=== PATIENT | female | born 1965 | race Caucasian/White ===

== ENCOUNTER 2016-06-05 17:09 | Emergency (ER) | payer SELFPAY ==
[~2016-06-05 17:09] MED LIST: BELSOMRA20 MG PO; LAMICTAL200 MG PO; MIRTAZAPINE15 MG PO; NEURONTIN300 MG PO; SULFAMETHOXAZOL; VALERIAN ROOT PO; VISTARIL25 MG PO
--- NOTE | 2016-06-05 17:12 | NUR ---
CALLED PT FOR TRIAGE ASSESSMENT, NO ANSWER.
--- NOTE | 2016-06-05 17:30 | NUR ---
CALLED PT FOR TRIAGE ASSESSMENT, NO ANSWER.
--- NOTE | 2016-06-05 17:45 | NUR ---
PATIENT LEFT WITHOUT BEING SEEN BY DR. LOPEZ. NO FURTHER CARE PROVIDED FOR PATIENT.
[2016-06-06] MEDS ORDERED: NEURONTIN400 MG PO (09:25)
[2016-06-14] MEDS ORDERED: NEURONTIN300 MG PO (14:27)
[2016-06-14] MEDS ORDERED: CATAPRES0.1 MG PO (14:27)
== END 2016-06-05 17:45 | disposition left against medical advice (07) ==
LOC: MED 17:09
DX: H92.09 Otalgia, unspecified ear (principal); Z53.21 Procedure and treatment not carried out due to patient leaving prior to being seen by health care provider

== ENCOUNTER 2016-06-06 09:13 | Emergency (ER) | payer MEDICAID, OTHER ==
[~2016-06-06] VITALS: Ht 165.1 cm; Wt 72.6 kg
--- NOTE | 2016-06-06 09:20 | NUR ---
Patient ambulated to bed 03.
[2016-06-06 09:21] VITALS: BP 141/93
--- NOTE | 2016-06-06 09:22 | NUR ---
Dr. Lagunas evaluating patient at bedside.
[2016-06-06] MEDS ORDERED: NEURONTIN400 MG PO (09:25)
--- NOTE | 2016-06-06 09:25 | NUR ---
PATIENT PRESENTS TO ED WITH LOW BACK PAIN X 1 MONTH; DENIES N/V/D; SKIN IS PINK/WARM/DRY; AAOX4 WITH EVEN AND STEADY GAIT; LUNGS CLEAR BL; HR EVEN AND REGULAR; PT DENIES ANY FEVER, CP, SOB, OR COUGH AT THIS TIME; PATIENT STATES PAIN OF 9/10 AT THIS TIME; VSS; PATIENT POSITIONED FOR COMFORT; HOB ELEVATED; BEDRAILS UP X2; BED DOWN. ER MD MADE AWARE OF PT STATUS.
[2016-06-06] MEDS ORDERED: KETOROLAC 30 MG/ML VIAL IM ONE (09:30)
[2016-06-06] MEDS ORDERED: METHOCARBAMOL 500 MG TAB PO SCH (09:30)
[2016-06-06] MEDS ORDERED: HYDROcodone/APAP 5/325 MG 1 TAB TAB PO ONE (09:30)
--- NOTE | 2016-06-06 09:45 | NUR ---
Patient ambulated to the bathroom.
[2016-06-06 10:05] VITALS: BP 130/75
--- NOTE | 2016-06-06 10:05 | NUR ---
Patient discharged with v/s stable. Written and verbal after care instructions given and explained. Patient alert, oriented and verbalized understanding of instructions. Ambulatory with steady gait. All questions addressed prior to discharge. ID band removed. Patient advised to follow up with PMD. Rx of NORCO, ROBAXIN, MOTRIN given. Patient educated on indication of medication including possible reaction and side effects. Opportunity to ask questions provided and answered.
[2016-06-14] MEDS ORDERED: NEURONTIN300 MG PO (14:27)
[2016-06-14] MEDS ORDERED: CATAPRES0.1 MG PO (14:27)
== END 2016-06-06 10:05 | disposition home or self-care (01) ==
LOC: MED 09:17
DX: M54.16 Radiculopathy, lumbar region (principal); G89.29 Other chronic pain; F17.200 Nicotine dependence, unspecified, uncomplicated
CPT/HCPCS: 96372; 99283; J1885

== ENCOUNTER 2016-08-08 12:36 | Emergency (ER) | payer OTHER ==
[~2016-08-08] VITALS: Ht 165.1 cm; Wt 65.8 kg
[~2016-08-08 12:36] MED LIST changes: -BELSOMRA20 MG PO; +CLON0.1T42 PO; +GABA300C PO; +HYDR25CA1 PO; -LAMICTAL200 MG PO; +MIRT15TA4 PO; -MIRTAZAPINE15 MG PO; -NEURONTIN300 MG PO; -SULFAMETHOXAZOL; +VALE450C PO; -VALERIAN ROOT PO; -VISTARIL25 MG PO
--- NOTE | 2016-08-08 12:40 | NUR ---
PT BIBA TO BED 3.
[2016-08-08 12:48] VITALS: BP 157/101
--- NOTE | 2016-08-08 12:50 | NUR ---
PT O2 SAT 98% ON ROOM AIR; STATES BREATHING FINE; RR EVEN/UNLABORED, REFUSES SUPPLEMENTARY O2; WILL CONTINUE TO MONITOR.
--- NOTE | 2016-08-08 12:50 | NUR ---
50F BIBA FROM HOME C/O NAUSEA/VOMITING/DIARRHEA W/ ABDOMINAL PAIN X TODAY; PT STATES HAD 10-15 EPISODES OF VOMITING, AND 3 EPISODES OF DIARRHEA TODAY; PT C/O SHARP EPIGASTRIC PAIN, RADIATES TO BL UPPER ABDOMINAL SIDES, 10/10 X TODAY; ABDOMEN SOFT, NON-TENDER, ACTIVE BOWEL SOUNDS X 4 QUADRANTS; PT A&OX4, PERRL, BL LUNG SOUNDS CLEAR, RR EVEN/UNLABORED, SKIN IS WARM/DRY/INTACT AT THIS TIME; STEADY GAIT; PT RESTING IN BED W/ HOB ELEVATED AND IN LOWEST POSITION; POSITIONED FOR COMFORT; HX: HTN/PANCREATITIS. ER MD MADE AWARE OF STATUS. WILL CONTINUE TO MONITOR.
--- NOTE | 2016-08-08 12:56 | NUR ---
ER MD DR. ZENDEJAS EVALUATING PT AT BEDSIDE.
[2016-08-08] MEDS ORDERED: NACL 0.9% 1,000 ML IV ONE (13:00)
[2016-08-08] MEDS ORDERED: PROMETHAZINE 25 MG/ML VIAL IVP ONE (13:00)
[2016-08-08] MEDS ORDERED: KETOROLAC 30 MG/ML VIAL IVP ONE (13:00)
--- NOTE | 2016-08-08 13:12 | NUR ---
XRAY AT BEDSIDE.
[2016-08-08 13:27] LABS: BASOPHILS # (AUTO) 0.2 K/uL (0.00-0.22); BASOPHILS % (AUTO) 1.2 % (0.0-2.0); EOSINOPHILS # (AUTO) 0.2 K/uL (0-0.4); EOSINOPHILS % (AUTO) 1.3 % (0.0-4.0); HEMATOCRIT 48.6 % (36-48); HEMOGLOBIN 15.4 g/dL (12.0-16.0); LYMPHOCYTES # (AUTO) 1.9 K/uL (2.5-16.5); LYMPHOCYTES % (AUTO) 15.2 % (20.5-51.1); MEAN CORPUSCULAR HEMOGLOBIN 26 pg (27-31); MEAN CORPUSCULAR HGB CONC 32 g/dL (33-37); MEAN CORPUSCULAR VOLUME 83 fL (80-94); MONOCYTES # (AUTO) 0.3 K/uL (0.8-1.0); MONOCYTES % (AUTO) 2.1 % (1.7-9.3); NEUTROPHILS # (AUTO) 10.1 K/uL (1.8-7.7); NEUTROPHILS % (AUTO) 80.2 % (42.2-75.2); PLATELET COUNT (AUTO) 313 K/uL (140-450); RED BLOOD CELL COUNT(AUTO) 5.85 MIL/uL (4.20-5.40); RED CELL DISTRIBUTION WIDTH 12.9 % (11.6-13.7); WHITE BLOOD COUNT (AUTO) 12.7 K/uL (4.8-10.8)
[2016-08-08 13:39] LABS: ALBUMIN 3.7 g/dL (3.4-5.0); ANION GAP 16.4 (8-16); CALCIUM 9.8 mg/dL (8.5-10.1); CARBON DIOXIDE 23.5 mmol/L (21-32); CREATININE 0.8 mg/dL (0.6-1.3); POTASSIUM 3.9 mmol/L (3.5-5.1); TOTAL BILIRUBIN 0.5 mg/dL (0.0-1.0); TOTAL PROTEIN, SERUM 8.2 g/dL (6.4-8.2)
--- NOTE | 2016-08-08 13:49 | NUR ---
US AT BEDSIDE.
[2016-08-08] MEDS ORDERED: fentaNYL 0.05 MG/ML VIAL IVP ONE (13:55)
[2016-08-08] MEDS ORDERED: DICYCLOMINE HCL LIQUID 10 MG/5 ML UDC PO ONE (14:35)
--- NOTE | 2016-08-08 15:30 | NUR ---
IV removed, catheter intact and site benign. Applied folded 4x4 gauze and tape to stop bleeding. PT TOLERATED PROCEDURE WELL.
[2016-08-08 15:32] VITALS: BP 144/77
--- NOTE | 2016-08-08 15:32 | NUR ---
Patient discharged with v/s stable. Written and verbal after care instructions given and explained. Patient alert, oriented and verbalized understanding of instructions. Wheel Chair Assisted with to car. All questions addressed prior to discharge. ID band removed. Patient advised to follow up with PMD. Rx of BENTYL 20MG TAB & PROTONIX 40MG & ZOFRAN ODT 4MG given. Patient educated on indication of medication including possible reaction and side effects. Opportunity to ask questions provided and answered.
== END 2016-08-08 15:32 | disposition home or self-care (01) ==
LOC: MED 12:36
DX: E86.0 Dehydration (principal); K29.70 Gastritis, unspecified, without bleeding; I10 Essential (primary) hypertension; M54.30 Sciatica, unspecified side
CPT/HCPCS: 36415; 71010; 76705; 80053; 81025; 83690; 84484; 85025; 93005; 96361; 96374; 96375; 99285; J1885; J2550; J3010; J7030; Q0092; 81002

== ENCOUNTER 2017-01-08 13:50 | Emergency (ER) | payer OTHER ==
[~2017-01-08] VITALS: Ht 165.1 cm; Wt 77.1 kg
[2017-01-08 13:59] VITALS: BP 121/75
--- NOTE | 2017-01-08 15:59 | NUR ---
PATIENT CALLED FROM LOBBY AT THIS TIME PATIENT IS LWBS.
== END 2017-01-08 15:59 | disposition left against medical advice (07) ==
LOC: MED 13:50
DX: M79.1 Myalgia (principal); Z53.21 Procedure and treatment not carried out due to patient leaving prior to being seen by health care provider

== ENCOUNTER 2017-01-10 10:48 | Emergency (ER) | payer OTHER ==
[~2017-01-10] VITALS: Ht 165.1 cm; Wt 81.0 kg
[2017-01-10 10:54] VITALS: BP 95/65
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
[2017-01-10] MEDS ORDERED: MORPHINE SULFATE 4 MG/ML SYR IM ONE (11:45)
--- NOTE | 2017-01-10 11:52 | NUR ---
PT TAKEN OFF THE UNIT VIA WHEEL CHAIR FOR XRAY
--- NOTE | 2017-01-10 12:07 | NUR ---
[facility] PT TAKEN OFF THE UNIT VIA WHEEL CHAIR FOR XRAY OF THE NECK BY ENTERPRISE RESOURCE ANALYST
[2017-01-10 13:17] VITALS: BP 101/68
--- NOTE | 2017-01-10 13:17 | NUR ---
Patient discharged with v/s stable. Written and verbal after care instructions given and explained. Patient alert, oriented and verbalized understanding of instructions. Ambulatory with steady gait. All questions addressed prior to discharge. ID band removed. Patient advised to follow up with PMD. Rx of BACTRIM, KEFLEX given. Patient educated on indication of medication including possible reaction and side effects. Opportunity to ask questions provided and answered.
== END 2017-01-10 13:17 | disposition home or self-care (01) ==
LOC: MED 10:48
DX: M54.5 Low back pain (principal); M54.2 Cervicalgia; L03.211 Cellulitis of face; I10 Essential (primary) hypertension; E11.9 Type 2 diabetes mellitus without complications; V89.2XXA Person injured in unspecified motor-vehicle accident, traffic, initial encounter; Y93.89 Activity, other specified; Y92.89 Other specified places as the place of occurrence of the external cause; Y99.8 Other external cause status
CPT/HCPCS: 72040; 72100; 81002; 81025; 96372; 99284; J2270

== ENCOUNTER 2017-03-14 11:52 | Inpatient (IN) | payer OTHER ==
[~2017-03-14] VITALS: Ht 162.6 cm; Wt 77.1 kg
--- NOTE | 2017-03-14 11:55 | NUR ---
Pt placed in bed 3 by EMS.
[2017-03-14 11:58] VITALS: BP 154/98
--- NOTE | 2017-03-14 12:08 | NUR ---
51/F biba from home for evaluation of abdominal pain since this am accompanied by N/V/D for the past 3 days. Hx pancreatitis, depression. Pt describes pain as epigastris, LUQ, non radiating, severe, constant, 10/10. Pt has had no vomiting while in ED. Pt received Zofran 8mg IVP prior to arrival. Abd soft, tender with palpation, active bowel sounds x4 quadrants. AOX4. Pt in a gown, placed on pulse oximetry and blood pressure monitoring. VSS at this time.
--- NOTE | 2017-03-14 12:10 | NUR ---
Patient being evaluated by Dr. Biswas at bedside.
[2017-03-14] MEDS ORDERED: NACL 0.9% 1,000 ML IV ONE ×2 (12:16→14:15)
[2017-03-14] MEDS ORDERED: ONDANSETRON 4 MG/2 ML VIAL IVP ONE ×2 (12:20→12:35)
[2017-03-14] MEDS ORDERED: MORPHINE SULFATE 4 MG/ML SYR IVP ONE (12:20)
--- NOTE | 2017-03-14 12:25 | NUR ---
Lab at bedside for blood draw.
[2017-03-14 12:30] LABS: BASOPHILS # (AUTO) 0.4 K/uL (0.00-0.22); BASOPHILS % (AUTO) 3.2 % (0.0-2.0); EOSINOPHILS # (AUTO) 0.2 K/uL (0-0.4); EOSINOPHILS % (AUTO) 1.3 % (0.0-4.0); HEMATOCRIT 48.1 % (36-48); HEMOGLOBIN 15.5 g/dL (12.0-16.0); LYMPHOCYTES # (AUTO) 1.1 K/uL (2.5-16.5); LYMPHOCYTES % (AUTO) 8.7 % (20.5-51.1); MEAN CORPUSCULAR HEMOGLOBIN 28 pg (27-31); MEAN CORPUSCULAR HGB CONC 32 g/dL (33-37); MEAN CORPUSCULAR VOLUME 86 fL (80-94); MONOCYTES % (AUTO) 0.1 % (1.7-9.3); NEUTROPHILS # (AUTO) 11.3 K/uL (1.8-7.7); NEUTROPHILS % (AUTO) 86.7 % (42.2-75.2); PLATELET COUNT (AUTO) 347 K/uL (140-450); RED BLOOD CELL COUNT(AUTO) 5.62 MIL/uL (4.20-5.40); RED CELL DISTRIBUTION WIDTH 13.2 % (11.6-13.7)
[2017-03-14] MEDS ORDERED: HYDROmorphone 1 MG/ML AMP IVP ONE ×2 (12:35→14:15)
[2017-03-14] MEDS ORDERED: HYDROmorphone PFS 2 MG/ML SYR ONE ×2 (12:47→14:41)
[2017-03-14 12:57] LABS: ALBUMIN 3.8 g/dL (3.4-5.0); ANION GAP 12.1 (8-16); CARBON DIOXIDE 26.5 mmol/L (21-32); CREATININE 0.8 mg/dL (0.6-1.3); POTASSIUM 3.6 mmol/L (3.5-5.1); TOTAL BILIRUBIN 0.4 mg/dL (0.0-1.0)
--- NOTE | 2017-03-14 13:01 | NUR ---
Pt to be taken to CT via gurney.
--- NOTE | 2017-03-14 13:15 | NUR ---
Patient back from CT via gurney.
[2017-03-14] MEDS ORDERED: METOCLOPRAMIDE 10 MG/2 ML INJ VIAL IVP ONE (14:15)
[2017-03-14] MEDS ORDERED: diphenhydrAMINE 50 MG/ML VIAL IVP ONE (14:15)
[2017-03-14] MEDS: NACL 0.9% 1,000 ML IV SCH ×2 (14:18→21:04)
[2017-03-14] MEDS ORDERED: HYDROcodone/APAP 7.5/325 MG 1 TAB PO PRN (14:20)
[2017-03-14] MEDS ORDERED: ACETAMINOPHEN 325 MG TAB PO PRN (14:20)
--- NOTE | 2017-03-14 14:27 | NUR ---
US AT BEDSIDE.ENEMA WILL BE GIVEN AFTER US;
--- NOTE | 2017-03-14 14:35 | NUR ---
X-Ray at bedside.
[2017-03-14] MEDS ORDERED: TAMSULOSIN 0.4 MG CAP PO SCH (14:50)
[2017-03-14 15:06] LABS: PROTHROMBIN TIME 11.1 secs (10.8-13.4)
--- NOTE | 2017-03-14 15:30 | NUR ---
PATIENT WAS TRANSFERRED FROM ER BY TERRI. REPORT WAS GIVEN AT BEDSIDE. PATIENT RESPIRATION EVEN, UNLABOR. VS WAS TAKEN. MRSA WAS SWABBED. ASSESSMENT WAS DONE AT BEDSIDE. LUNGS SOUND CLEAR THROUGHOUT, CARDIAC WITH S1,S2 PRESENT. PATIENT AWAKE, ALERT, ORIENTED X 4. BOWEL SOUND ACTIVE 4 QUADRANTS. COMPLAINED OF NAUSEA, AND PAIN ON ABDOMEN THAT RADIATE TO THE BACK. WILL MEDICATE PER ORDER. IV 20G ON LEFT AC, PATENT AND INTACT. CALL LIGHT WITHIN REACH. WILL CONTINUE TO MONITOR
[2017-03-14 15:43] LABS: CHOL/HDL RATIO 8.5 (1-4.5); FREE T4 (FREE THYROXINE) 0.9 ng/dL (0.76-1.46); MAGNESIUM 1.8 mg/dL (1.8-2.4); PHOSPHORUS 2.3 mg/dL (2.5-4.9); THYROID STIMULATING HORMONE 0.21 uIU/mL (0.34-3.74)
[2017-03-14] MEDS: HYDROcodone/APAP 7.5/325 MG 1 TAB PO PRN (16:00)
--- NOTE | 2017-03-14 16:00 | NUR ---
NEW IV WAS PLACED ON RIGHT HAND, 22G INFUSING NS @ 150ML/HR. OLD IV CAME OFF PER PATIENT, CATHETER TIP INTACT. PATIENT TOLERATED OK. CALL LIGHT WITHIN REACH. WILL CONTINUE TO MONITOR
[2017-03-14] MEDS ORDERED: LIOT5TAB PO (16:10)
[2017-03-14] MEDS ORDERED: ALPR1TAB17 PO (16:10)
[2017-03-14] MEDS ORDERED: DESV50TE PO (16:10)
[2017-03-14] MEDS: ONDANSETRON 4 MG/2 ML VIAL IVP PRN (16:14)
[2017-03-14] MEDS ORDERED: VITD1000 PO (16:15)
[2017-03-14] MEDS ORDERED: SODIUM PHOS / POTASSIUM PHOS 1 PKT PDR PO SCH (16:30)
[2017-03-14 16:42] VITALS: BP 130/73
[2017-03-14] MEDS: GABAPENTIN 300 MG CAP PO SCH ×2 (17:31→21:04)
[2017-03-14] MEDS: cloNIDine 0.1 MG TAB PO SCH (17:32)
[2017-03-14] MEDS: hydrOXYzine PAMOATE 25 MG CAP PO SCH (17:32)
--- NOTE | 2017-03-14 18:00 | NUR ---
PATIENT AWAKE, ALERT. RESPIRATION IS EVEN. COMPLAINED OF PAIN 7/10 ON ABDOMEN THAT RADIATES TO THE LOWER BACK. WILL MEDICATE PER ORDER. CALL LIGHT WITHIN REACH. WILL CONTINUE TO MONITOR
[2017-03-14] MEDS: ALPRAZolam 0.5 MG TAB PO PRN (18:13)
[2017-03-14] MEDS: KETOROLAC 15 MG/ML VIAL IVP PRN (18:13)
[2017-03-14 18:28] LABS: APPEARANCE,URINE CLEAR (CLEAR); BILIRUBIN,URINE NEGATIVE (NEGATIVE); BLOOD, URINE 1+ (NEGATIVE); COLOR,URINE YELLOW (YELLOW); LEUKOCYTE ESTERASE ,URINE NEGATIVE (NEGATIVE); NITRITE, URINE NEGATIVE (NEGATIVE); UGLUCOSE NEGATIVE (NEGATIVE)
[2017-03-14 18:35] LABS: BARBITURATE, URINE NEG. ng/ml (NEG <=200); BENZODIAZEPINE, URINE POS. ng/mL (NEG <=200); CANNABINOID, URINE NEG. ng/mL (NEG <=50); COCAINE, URINE NEG. ng/mL (NEG <=300); OPIATE, URINE POS. ng/mL (NEG <=2000); PHENCYCLIDINE SCREEN,URINE NEG. ng/mL (NEG <=25)
[2017-03-14 18:52] LABS: RBC,URINE 20-50 /HPF (0-5); WBC,URINE NONE SEEN /HPF (0-5)
--- NOTE | 2017-03-14 19:26 | NUR ---
ENDORSEMENT GIVEN TO THE REHAB CARE ASSISTANT NURSE. PATIENT IS STABLE AT THIS TIME.
--- NOTE | 2017-03-14 19:35 | NUR ---
RECEIVED REPORT FROM DAY RN TONY. PATIENT WAS SLEEPING IN THE BED, BUT EASY TO AROUSE. NO S/S OF DISTRESS NOTED, RESPIRATION EVEN AND UNLABORED, IV PATENT AND INTACT, INFUSING NS AT 150ML/HR, CALL LIGHT WITHIN REACH, SAFETY MEASURE ENSURED, WILL CONTINUE TO MONITOR.
[2017-03-14 20:00] VITALS: BP 123/73
[2017-03-14] MEDS: DOCUSATE SODIUM 100 MG GELCAP PO SCH (21:04)
--- NOTE | 2017-03-14 21:07 | NUR ---
DUE MEDICATION GIVEN, PATIENT TOLERATED WELL. NO S/S OF DISTRESS NOTED, RESPIRATION EVEN AND UNLABORED, CALL LIGHT WITHIN REACH, SAFETY MEASURE ENSURED, WILL CONTINUE TO MONITOR.
[2017-03-15] VITALS: BP 136/77
--- NOTE | 2017-03-15 00:53 | NUR ---
PATIENT WAS SLEEPING, EASY TO AROUSE, VITAL SIGNS TAKEN, STABLE. PATIENT HAS NOT VOIDED YET, INSTRUCTED PATIENT TO CALL NURSE WHEN SHE NEEDS TO VOID BECAUSE URINE NEED TO BE STRAINED FOR URETEROLITHIASIS. PATIENT VERBALIZED UNDERSTANDING. CALL LIGHT WITHIN REACH, SAFETY MEASURE ENSURED, WILL CONTINUE TO MONITOR.
--- NOTE | 2017-03-15 01:10 | NUR ---
VOIDED X1, STRAINED 400ML URINE, NO STONE FOUND. PATIENT IS RESTING IN BED, NO S/S OF DISTRESS NOTED, WILL CONTINUE TO MONITOR.
[2017-03-15] MEDS: HYDROcodone/APAP 7.5/325 MG 1 TAB PO PRN (03:01)
[2017-03-15] MEDS: ONDANSETRON 4 MG/2 ML VIAL IVP PRN ×2 (03:43→09:08)
[2017-03-15] MEDS: NACL 0.9% 1,000 ML IV SCH ×4 (03:43→23:38)
--- NOTE | 2017-03-15 03:48 | NUR ---
PATIENT STATED," I FEEL NAUSEOUS." ZOFRAN GIVEN ORDERED. VOIDEDX1, STRAINED 200ML, NO STONE WAS FOUND. PATIENT IS RESTING IN BED, NO S/S OF DISTRESS NOTED, CALL LIGHT WITHIN REACH, SAFETY MEASURE ENSURED, WILL CONTINUE TO MONITOR.
[2017-03-15 04:00] VITALS: BP 152/73
[2017-03-15] MEDS: KETOROLAC 15 MG/ML VIAL IVP PRN (05:14)
--- NOTE | 2017-03-15 05:21 | NUR ---
PATIENT WAS SLEEPING, EASY TO AROUSE, STATED, " I HAVE BACK PAIN, CAN I HAVE TORADOL." TORADOL ADMINISTERED ORDERED FOR BREAKTHROUGH PAIN. CALL LIGHT WITHIN REACH, SAFETY MEASURE ENSURED ,WILL CONTINUE TO MONITOR.
[2017-03-15] MEDS ORDERED: MORPHINE SULFATE 2 MG/ML SYR IVP PRN (07:05)
[2017-03-15 07:10] LABS: BASOPHILS # (AUTO) 0.5 K/uL (0.00-0.22); BASOPHILS % (AUTO) 4.3 % (0.0-2.0); EOSINOPHILS % (AUTO) 0.3 % (0.0-4.0); HEMOGLOBIN 13.5 g/dL (12.0-16.0); LYMPHOCYTES # (AUTO) 1.9 K/uL (2.5-16.5); LYMPHOCYTES % (AUTO) 15.8 % (20.5-51.1); MEAN CORPUSCULAR HEMOGLOBIN 28 pg (27-31); MEAN CORPUSCULAR HGB CONC 33 g/dL (33-37); MEAN CORPUSCULAR VOLUME 85 fL (80-94); MONOCYTES # (AUTO) 0.8 K/uL (0.8-1.0); MONOCYTES % (AUTO) 6.4 % (1.7-9.3); NEUTROPHILS # (AUTO) 8.7 K/uL (1.8-7.7); NEUTROPHILS % (AUTO) 73.2 % (42.2-75.2); PLATELET COUNT (AUTO) 283 K/uL (140-450); RED BLOOD CELL COUNT(AUTO) 4.82 MIL/uL (4.20-5.40); RED CELL DISTRIBUTION WIDTH 13.4 % (11.6-13.7); WHITE BLOOD COUNT (AUTO) 11.9 K/uL (4.8-10.8)
[2017-03-15 07:17] LABS: ANION GAP 11.5 (8-16); CARBON DIOXIDE 24.7 mmol/L (21-32); CREATININE 0.7 mg/dL (0.6-1.3); POTASSIUM 3.2 mmol/L (3.5-5.1)
--- NOTE | 2017-03-15 07:21 | NUR ---
ENDORSED PLAN OF CARE TO DAY RN, PATIENT IS IN STABLE CONDITION.
--- NOTE | 2017-03-15 07:23 | NUR ---
RECEIVED REPORT FROM STRUCTURAL STEEL TRADES WORKER RN. PATIENT IS AAOX4, NO SIGNS AND SYMPTOMS OF ACUTE DISTRESS NOTED AT THIS TIME. PATIENT HAS NS INFUSING AT 150ML/HR TO RIGHT HAND 22G. SITE IS CLEAN, DRY, PATENT AND INTACT. DISCUSSED PLAN OF CARE WITH PATIENT SHE VERBALIZED UNDERSTANDING. BED IN LOWEST POSITION, SIDERAILS UP X2, CALL LIGHT PLACED WITHIN REACH. WILL CONTINUE TO MONITOR.
[2017-03-15 07:24] LABS: MAGNESIUM 1.8 mg/dL (1.8-2.4); PHOSPHORUS 2.3 mg/dL (2.5-4.9)
[2017-03-15 08:00] VITALS: BP 122/85
[2017-03-15 08:04] LABS: AMYLASE 30 U/L (25-115); LIPASE 155 U/L (73-393)
[2017-03-15] MEDS ORDERED: POTASSIUM CHLORIDE 40 MEQ, LIDOCAINE 1% 25 MG in NACL 0.9% 250 ML IV SCH (09:00)
[2017-03-15] MEDS ORDERED: DESVENLAFAXINE SUCCINATE PO SCH (09:00)
[2017-03-15] MEDS: DOCUSATE SODIUM 100 MG GELCAP PO SCH ×2 (09:00→21:02)
[2017-03-15] MEDS ORDERED: LIOTHYRONINE SODIUM 5 MCG PO SCH (09:00)
[2017-03-15] MEDS: hydrOXYzine PAMOATE 25 MG CAP PO SCH ×3 (09:04→17:00)
[2017-03-15] MEDS: TAMSULOSIN 0.4 MG CAP PO SCH (09:05)
[2017-03-15] MEDS: LACTOBACILLUS RHAMNOSUS GG 1 EACH CAP PO SCH (09:07)
--- NOTE | 2017-03-15 09:07 | NUR ---
PATIENTS MOTHER IS BY THE BEDSIDE
[2017-03-15] MEDS: VITAMIN D 400 IU TAB PO SCH (09:09)
[2017-03-15] MEDS: PANTOPRAZOLE 40 MG TABEC PO SCH (09:09)
[2017-03-15] MEDS: cloNIDine 0.1 MG TAB PO SCH ×4 (09:12→21:07)
[2017-03-15] MEDS: GABAPENTIN 300 MG CAP PO SCH ×4 (09:12→21:00)
--- NOTE | 2017-03-15 09:30 | NUR ---
PATIENT COMPLAINING THAT HER IV SITE IS HURTING. K RIDER WITH LIDOCAINE IS CURRENTLY INFUSING. WILL LET DR YANCEY KNOW.
--- NOTE | 2017-03-15 09:40 | NUR ---
PATIENT STATED THAT HER MOTHER HAD BROUGHT A BAG WITH HER MEDICATIONS. WILL TAKE THEM TO THE PHARMACY.
[2017-03-15] MEDS ORDERED: traMADol 50 MG TAB PO PRN (09:45)
[2017-03-15] MEDS ORDERED: POTASSIUM CHLORIDE 10 MEQ TABER PO SCH (10:30)
[2017-03-15] MEDS: LIOTHYRONINE 5 MCG PO SCH (11:30)
[2017-03-15] MEDS: DESVENLAFAXINE 50 MG PO SCH (11:30)
--- NOTE | 2017-03-15 11:30 | NUR ---
GAVE PATIENT K-DUR. WENT TO ADMINISTER THE DESVENLAFAXINE, AND LIOTHYRONINE THAT WERE BROUGHT FROM HOME BUT PATIENT STATED THAT SHE TOOK THEM ALREADY THIS MORNING BEFORE I COLLECTED HER HOME MEDICATIONS FROM THE BEDSIDE.
[2017-03-15 12:00] VITALS: BP 156/83
[2017-03-15] MEDS: ALPRAZolam 0.5 MG TAB PO PRN ×2 (12:01→21:01)
[2017-03-15] MEDS: KETOROLAC 30 MG/ML VIAL IVP PRN (12:02)
[2017-03-15] MEDS ORDERED: SODIUM PHOS / POTASSIUM PHOS 1 PKT PDR PO SCH (14:30)
[2017-03-15 16:00] VITALS: BP 127/69
[2017-03-15] MEDS ORDERED: LOPERAMIDE 2 MG CAP PO SCH (18:10)
[2017-03-15] MEDS: HYDROcodone/APAP 10/325 MG 1 TAB TAB PO PRN (18:53)
--- NOTE | 2017-03-15 19:30 | NUR ---
ENDORSED PATIENT TO HOT DIP PLATING SUPERVISOR RN FOR CONTINUITY OF CARE. PATIENT IN STABLE CONDITION.
--- NOTE | 2017-03-15 19:35 | NUR ---
ON BED ALERT AND ORIENTED BREATHING EVEN AND UNLABORED ON ROOM AIR . WITH TOLERABLE LOWER BACK PAIN JUST HAD NORCO AT 1850 HRS WILL CONTINUE MONITOR PATIENT.
[2017-03-16] VITALS: BP 100/62
--- NOTE | 2017-03-16 00:30 | NUR ---
pATIENT WENT TO BATHROOM TO URINATE SHE STRAINED HER URINE AND CALLED ME I SAW A TINY BLACK ? STONE I TOUCH IT AND IT DESOLVED. PATIENT SAID SHE IS FINE . I ADVISED HER STRAIN HER URINE AGAIN NEXT TIME TO WE CAN MONITOR.
[2017-03-16] MEDS: HYDROcodone/APAP 10/325 MG 1 TAB TAB PO PRN ×2 (00:43→09:17)
[2017-03-16 04:00] VITALS: BP 109/70
[2017-03-16] MEDS: KETOROLAC 30 MG/ML VIAL IVP PRN (04:35)
[2017-03-16] MEDS: NACL 0.9% 1,000 ML IV SCH (06:18)
--- NOTE | 2017-03-16 07:10 | NUR ---
RECEIVED REPORT FROM DRAPERY CUTTER NURSE CAROLYN AT BEDSIDE FOR CONTINUITY OF CARE. DR. YANCEY AT BEDSIDE. PER DR. YANCEY OK TO FINISH REMAINDER OF IV NS. PT WALKED TO USE BATHROOM WITH STEADY GAIT. PT IN STABLE CONDITION.
[2017-03-16 07:22] LABS: BASOPHILS # (AUTO) 0.2 K/uL (0.00-0.22); EOSINOPHILS # (AUTO) 0.2 K/uL (0-0.4); EOSINOPHILS % (AUTO) 2.1 % (0.0-4.0); HEMOGLOBIN 11.1 g/dL (12.0-16.0); LYMPHOCYTES # (AUTO) 4.2 K/uL (2.5-16.5); LYMPHOCYTES % (AUTO) 50.8 % (20.5-51.1); MEAN CORPUSCULAR HEMOGLOBIN 28 pg (27-31); MEAN CORPUSCULAR HGB CONC 33 g/dL (33-37); MEAN CORPUSCULAR VOLUME 85 fL (80-94); MONOCYTES # (AUTO) 0.6 K/uL (0.8-1.0); MONOCYTES % (AUTO) 6.8 % (1.7-9.3); NEUTROPHILS # (AUTO) 3.1 K/uL (1.8-7.7); NEUTROPHILS % (AUTO) 37.3 % (42.2-75.2); PLATELET COUNT (AUTO) 195 K/uL (140-450); RED BLOOD CELL COUNT(AUTO) 4.01 MIL/uL (4.20-5.40); RED CELL DISTRIBUTION WIDTH 13.4 % (11.6-13.7); WHITE BLOOD COUNT (AUTO) 8.3 K/uL (4.8-10.8)
[2017-03-16 07:33] LABS: ANION GAP 10.5 (8-16); CARBON DIOXIDE 23.4 mmol/L (21-32); CREATININE 0.7 mg/dL (0.6-1.3); MAGNESIUM 1.7 mg/dL (1.8-2.4); PHOSPHORUS 3.4 mg/dL (2.5-4.9); POTASSIUM 3.9 mmol/L (3.5-5.1)
[2017-03-16 08:00] VITALS: BP 135/83
[2017-03-16] MEDS: TAMSULOSIN 0.4 MG CAP PO SCH (08:30)
[2017-03-16] MEDS: DOCUSATE SODIUM 100 MG GELCAP PO SCH (09:00)
[2017-03-16] MEDS: hydrOXYzine PAMOATE 25 MG CAP PO SCH (09:00)
[2017-03-16] MEDS: PANTOPRAZOLE 40 MG TABEC PO SCH (09:17)
[2017-03-16] MEDS: VITAMIN D 400 IU TAB PO SCH (09:17)
[2017-03-16] MEDS: GABAPENTIN 300 MG CAP PO SCH (09:18)
[2017-03-16] MEDS: LACTOBACILLUS RHAMNOSUS GG 1 EACH CAP PO SCH (09:18)
[2017-03-16 09:19] VITALS: BP 135/83
[2017-03-16] MEDS: cloNIDine 0.1 MG TAB PO SCH (09:19)
[2017-03-16] MEDS: DESVENLAFAXINE 50 MG PO SCH (09:20)
[2017-03-16] MEDS: LIOTHYRONINE 5 MCG PO SCH (09:20)
--- NOTE | 2017-03-16 09:27 | NUR ---
PATIENT HAS BEEN SCREENED AND CATEGORIZED MODERATE NUTRITION RISK. PATIENT WILL BE SEEN WITHIN 3-5 DAYS OF ADMISSION. 03/17/17-03/19/[address]
[2017-03-16] MEDS ORDERED: IBUP-2213 PO (09:53)
[2017-03-16] MEDS ORDERED: TAMS0.4C96 PO (09:53)
--- NOTE | 2017-03-16 10:25 | NUR ---
PT D/C'D TO GO HOME. GAVE D/C FORMS, INSTRUCTIONS, AND APPOINTMENT INFORMATION. PT VERBALIZED UNDERSTANDING AND SIGNED FORMS. D/C'D IV FROM R HAND 22G. IV CATHETER TIP INTACT. APPLIED DRESSING AND PRESSURE TO SITE. NO BLEEDING NOTED. REMOVED ID BAND. PT CHANGED IN OWN CLOTHES AND LEFT WITH ALL PERSONAL BELONGINGS. RETURNED HOME MEDS FROM PHARMACY. PT LEFT UNIT VIA AMBULATION ACCOMPANIED BY RN AND MOM. PT LEFT IN STABLE CONDITION.
--- NOTE | 2017-03-17 08:01 | NUR ---
[facility] ER REPORT, H&P AND DISCHARGE SUMMARY FAXED TO [facility], AND [facility] [phone]
== END 2017-03-16 10:25 | disposition home or self-care (01) | DRG 465 ==
LOC: MED 11:52 → MTU 14:24
PROVIDERS: ADMIT Family Medicine; ATTEND Family Medicine
DX: N20.1 Calculus of ureter (principal); K76.0 Fatty (change of) liver, not elsewhere classified; E83.39 Other disorders of phosphorus metabolism; I10 Essential (primary) hypertension; D72.829 Elevated white blood cell count, unspecified; K57.90 Diverticulosis of intestine, part unspecified, without perforation or abscess without bleeding; E78.5 Hyperlipidemia, unspecified; E05.90 Thyrotoxicosis, unspecified without thyrotoxic crisis or storm; F15.10 Other stimulant abuse, uncomplicated; G62.9 Polyneuropathy, unspecified; F32.9 Major depressive disorder, single episode, unspecified; F41.9 Anxiety disorder, unspecified; F17.210 Nicotine dependence, cigarettes, uncomplicated; Z98.51 Tubal ligation status; Z80.9 Family history of malignant neoplasm, unspecified; R52 Pain, unspecified; R06.82 Tachypnea, not elsewhere classified
CPT/HCPCS: 36415; 71010; 80048; 80053; 80305; 81001; 82150; 83036; 83605; 83690; 83735; 83880; 84100; 84439; 84443; 84484; 85025; 85610; 85730; 87040; 87081; 87086; 93005; 96361; 96374; 96375; 96376; 99285; J0696; J1170; J1200; J1885; J2001; J2270; J2405; J2765; J3480; J7030; J7060; Q0092; Q0177

== ENCOUNTER 2017-04-03 10:13 | Inpatient (IN) | payer OTHER ==
[~2017-04-03] VITALS: Ht 170.2 cm; Wt 77.6 kg
[~2017-04-03 10:13] MED LIST changes: +ALPR1TAB17 PO; +DESV50TE PO; +IBUP-2213 PO; +LIOT5TAB PO; -MIRT15TA4 PO; +TAMS0.4C96 PO; -VALE450C PO; +VITD1000 PO
[2017-04-03 11:08] VITALS: BP 115/66
--- NOTE | 2017-04-03 11:51 | NUR ---
PATIENT PRESENTS TO ED WITH EPIGASTRIC PAIN RADIATING RUQ X1 EXACERBATION . PT STATES .CONTINUOUS N/V/D; SKIN IS PINK/WARM/DRY; AAOX4 WITH EVEN AND STEADY GAIT; LUNGS CLEAR BL; HR EVEN AND REGULAR; PT DENIES ANY FEVER, CP, SOB, OR COUGH AT THIS TIME; PATIENT STATES PAIN OF 8/10 AT THIS TIME; VSS; PATIENT POSITIONED FOR COMFORT; HOB ELEVATED; BEDRAILS UP X2; BED DOWN. ER MD MADE AWARE OF PT STATUS.
[2017-04-03] MEDS ORDERED: ONDANSETRON 4 MG/2 ML VIAL IVP ONE (12:05)
[2017-04-03] MEDS ORDERED: NACL 0.9% 1,000 ML IV ONE ×2 (12:05→12:35)
[2017-04-03] MEDS ORDERED: HYDROmorphone 1 MG/ML AMP IVP ONE ×2 (12:05→13:40)
[2017-04-03 12:07] LABS: HEMATOCRIT 52.2 % (36-48); HEMOGLOBIN 16.4 g/dL (12.0-16.0); MEAN CORPUSCULAR HEMOGLOBIN 27 pg (27-31); MEAN CORPUSCULAR HGB CONC 31 g/dL (33-37); MEAN CORPUSCULAR VOLUME 86 fL (80-94); PLATELET COUNT (AUTO) 412 K/uL (140-450); RED BLOOD CELL COUNT(AUTO) 6.06 MIL/uL (4.20-5.40); RED CELL DISTRIBUTION WIDTH 13.9 % (11.6-13.7)
[2017-04-03 12:16] LABS: ALBUMIN 4.2 g/dL (3.4-5.0); ANION GAP 15.7 (8-16); CARBON DIOXIDE 26.4 mmol/L (21-32); POTASSIUM 4.1 mmol/L (3.5-5.1); TOTAL BILIRUBIN 0.2 mg/dL (0.0-1.0)
[2017-04-03 12:23] LABS: LYMPHOCYTES % (MANUAL) 30 % (20-46); MONOCYTES % (MANUAL) 8 % (5-12)
[2017-04-03] MEDS ORDERED: HYDROmorphone PFS 2 MG/ML SYR ONE ×2 (12:54→14:21)
[2017-04-03 13:02] LABS: PROTHROMBIN TIME 10.4 secs (10.8-13.4)
--- NOTE | 2017-04-03 13:05 | NUR ---
MEDICATED WRITTEN--WILL CONTINUE TO OBERVE FOR PAIN CONTROL
--- NOTE | 2017-04-03 13:05 | NUR ---
CT CONSENT SIGNED BY PT
[2017-04-03 13:11] LABS: APPEARANCE,URINE CLEAR (CLEAR); BILIRUBIN,URINE NEGATIVE (NEGATIVE); BLOOD, URINE NEGATIVE (NEGATIVE); COLOR,URINE YELLOW (YELLOW); LEUKOCYTE ESTERASE ,URINE NEGATIVE (NEGATIVE); NITRITE, URINE NEGATIVE (NEGATIVE); PH,URINE 6.5 (5.0-9.0); UGLUCOSE NEGATIVE (NEGATIVE)
--- NOTE | 2017-04-03 13:15 | NUR ---
PT TO CT SCAN VIA [facility]
[2017-04-03] MEDS ORDERED: PIPERACILLIN/TAZOBACTAM 3.375 GM in DEXTROSE 5% 50 ML IV ONE (13:35)
--- NOTE | 2017-04-03 13:40 | NUR ---
PT UP FROM [facility]--AMBULATORY TO RESTROOM
[2017-04-03] MEDS ORDERED: NACL 0.9% 500 ML IV ONE (14:10)
[2017-04-03] MEDS ORDERED: PIPERACILLIN/TAZOBACTAM 3.375 GM VIAL IV ONE (14:20)
--- NOTE | 2017-04-03 14:27 | NUR ---
MEDICATED FOR PAIN CONTROL WRITTEN---RAYMOND STARTED---
--- NOTE | 2017-04-03 15:26 | NUR ---
JAMARI EMT COMPLETED BELONGING LIST--IN CHART
[2017-04-03] MEDS ORDERED: NACL 0.9% 1,000 ML IV SCH (15:34)
[2017-04-03] MEDS ORDERED: ONDANSETRON 4 MG/2 ML VIAL IVP PRN (15:35)
[2017-04-03] MEDS ORDERED: HYDROcodone/APAP 7.5/325 MG 1 TAB PO PRN (15:35)
[2017-04-03] MEDS ORDERED: ACETAMINOPHEN 325 MG TAB PO PRN (15:35)
--- NOTE | 2017-04-03 15:35 | NUR ---
Pt transferred to Tele via [facility] RM 120-B REPORT GIVEN TO CALVIN PARKS
[2017-04-03 15:45] VITALS: BP 146/85
--- NOTE | 2017-04-03 15:45 | NUR ---
PATIENT ADMITTED TO UNIT FROM ER. PATIENT AWAKE, ALERT AND ORIENTED. PATIENT IS AMBULATORY. NO ACTIVE VOMITING OR DIARRHEA AT THIS TIME. NO C/O PAIN AT THIS TIME. PATIENT ON ROOM AIR. NO S/S OF DISTRESS NOTED. NO SOB. IV LINE NOTED TO THE LEFT AC, INTACT AND ASYMPTOMATIC. PATIENT ON TELE MONITORING. BED LOWERED WITH CALL LIGHT WITHIN REACH. WILL CONTINUE TO MONITOR
[2017-04-03] MEDS ORDERED: ALPRAZOLAM PO PRN (16:10)
[2017-04-03] MEDS ORDERED: IBUPROFEN 600 MG TAB PO PRN (16:10)
[2017-04-03 16:15] LABS: CHOL/HDL RATIO 7.5 (1-4.5); FREE T4 (FREE THYROXINE) 0.97 ng/dL (0.76-1.46); HDL CHOLESTEROL 37 mg/dL (40-60); LDL (CALC) 161 mg/dL (60-100); MAGNESIUM 2.4 mg/dL (1.8-2.4); PHOSPHORUS 4.8 mg/dL (2.5-4.9); THYROID STIMULATING HORMONE 0.34 uIU/mL (0.34-3.74); TRIGLYCERIDES 409 mg/dL (30-150)
[2017-04-03] MEDS ORDERED: DEXTROSE 50% 50 ML SYR IVP PRN (16:15)
[2017-04-03] MEDS ORDERED: INSULIN LISPRO SLIDING SCALE 100 UNITS/ML VIAL SUBQ PRN (16:15)
[2017-04-03] MEDS ORDERED: ALPRAZolam 0.5 MG TAB PO PRN (16:25)
[2017-04-03 16:30] LABS: BARBITURATE, URINE NEG. ng/ml (NEG <=200); BENZODIAZEPINE, URINE POS. ng/mL (NEG <=200); CANNABINOID, URINE NEG. ng/mL (NEG <=50); COCAINE, URINE NEG. ng/mL (NEG <=300); OPIATE, URINE NEG. ng/mL (NEG <=2000); PHENCYCLIDINE SCREEN,URINE NEG. ng/mL (NEG <=25)
[2017-04-03] MEDS: GABAPENTIN 300 MG CAP PO SCH ×2 (16:30→20:15)
[2017-04-03] MEDS: cloNIDine 0.1 MG TAB PO SCH (16:31)
[2017-04-03] MEDS: BLOOD GLUCOSE MONITORING 1 DEV DEV FS SCH ×2 (16:50→21:05)
[2017-04-03] MEDS ORDERED: KETOROLAC 15 MG/ML VIAL IVP PRN (17:45)
[2017-04-03] MEDS: DEXT 5% /NACL 0.9% 1,000 ML IV SCH (18:17)
--- NOTE | 2017-04-03 18:31 | NUR ---
BLADDER SCAN DONE AT BEDSIDE. 30ML URINE NOTED. NO BLADDER DISTENTION NOTED
--- NOTE | 2017-04-03 19:29 | NUR ---
PATIENT REPORT GIVEN AT BEDSIDE. PATIENT ENDORSED IN STABLE CONDITION
--- NOTE | 2017-04-03 19:30 | NUR ---
RECEUVED REPORT FROMDAY SHIFT NURSE. PT LYING IN BED. AAOX4. IV TO LEFT AC #20G WITH D5NS AT 120ML/HR INFUSING WELL. DISCUSSED PLAN OF CARE, PT VERBALIZE UNDERSTANDING. WILL CONTINUE TO MONITOR.
[2017-04-03] MEDS ORDERED: NICOTINE TRANSD SYS 7 MG/24 HR PATCH TD SCH (19:45)
[2017-04-03] MEDS ORDERED: MORPHINE SULFATE 2 MG/ML SYR IVP SCH (19:50)
--- NOTE | 2017-04-03 19:50 | NUR ---
PT C/O ABD PAIN. TORADOL 15MG IVP GIVEN AT 1816 BUT PT STATED THAT IT DIDN'T WORK. SHE HAS AN ORDER FOR NORCO 7.5/325 MG BUT PT DOESN'T WANT IT. DR. LAMAR MADE AWARE, SHE WILL TALK TO THE PT.
[2017-04-03 20:00] VITALS: BP 129/89
--- NOTE | 2017-04-03 20:17 | NUR ---
DR. LAMAR SPOKE TO PT AND ORDERED TO GIVE MORPHINE 1 MG IVP. ORDERED CARRIED OUT. WILL CONTINUE TO MONITOR.
[2017-04-03] MEDS ORDERED: ATORVASTATIN 20 MG TAB PO SCH (21:00)
[2017-04-03] MEDS: DOCUSATE SODIUM 100 MG GELCAP PO SCH (21:00)
--- NOTE | 2017-04-03 21:00 | NUR ---
ACE HELD PER DR. LAMAR ORDER. PT HAD LOOSE STOOL THIS MORNING X1.
[2017-04-03] MEDS: ALPRAZolam 0.5 MG TAB PO PRN (21:58)
[2017-04-03] MEDS ORDERED: MORPHINE SULFATE 2 MG/ML SYR IVP PRN (22:00)
[2017-04-03] MEDS ORDERED: MORPHINE SULFATE 2 MG/ML SYR IVP ONE (22:00)
--- NOTE | 2017-04-03 23:00 | NUR ---
PT C/O PAIN. MORPHINE 1 MG IVP GIVEN AT 2016. DR. LAMAR MADE AWARE AND ORDERED TO GIVE MORPHINE 1 MG IVP. ORDERED CARRIED OUT.
[2017-04-03] MEDS: NICOTINE TRANSD SYS 14 MG/24 HR PATCH TD SCH (23:07)
[2017-04-04] VITALS: BP 99/60
--- NOTE | 2017-04-04 02:05 | NUR ---
PT SLEEPING. NO DISTRESS NOTED. CALL LIGHT WITHIN REACH.
[2017-04-04] MEDS: HYDROmorphone PFS 2 MG/ML SYR IVP PRN ×2 (02:44→08:58)
[2017-04-04] MEDS: DEXT 5% /NACL 0.9% 1,000 ML IV SCH ×2 (02:48→11:14)
[2017-04-04 04:00] VITALS: BP 110/64
--- NOTE | 2017-04-04 05:05 | NUR ---
PT AMBULATING AT THE HALLWAY. NO C/O PAIN OR DISCOMFORT NOTED.
[2017-04-04 06:39] LABS: BASOPHILS # (AUTO) 0.4 K/uL (0.00-0.22); BASOPHILS % (AUTO) 3.7 % (0.0-2.0); EOSINOPHILS # (AUTO) 0.2 K/uL (0-0.4); EOSINOPHILS % (AUTO) 1.9 % (0.0-4.0); HEMATOCRIT 39.1 % (36-48); HEMOGLOBIN 13.1 g/dL (12.0-16.0); LYMPHOCYTES # (AUTO) 3.8 K/uL (2.5-16.5); MEAN CORPUSCULAR HEMOGLOBIN 29 pg (27-31); MEAN CORPUSCULAR HGB CONC 33 g/dL (33-37); MEAN CORPUSCULAR VOLUME 85 fL (80-94); MONOCYTES # (AUTO) 0.8 K/uL (0.8-1.0); MONOCYTES % (AUTO) 7.7 % (1.7-9.3); NEUTROPHILS # (AUTO) 5.4 K/uL (1.8-7.7); NEUTROPHILS % (AUTO) 50.7 % (42.2-75.2); PLATELET COUNT (AUTO) 265 K/uL (140-450); RED BLOOD CELL COUNT(AUTO) 4.58 MIL/uL (4.20-5.40); RED CELL DISTRIBUTION WIDTH 13.6 % (11.6-13.7); WHITE BLOOD COUNT (AUTO) 10.6 K/uL (4.8-10.8)
[2017-04-04] MEDS: BLOOD GLUCOSE MONITORING 1 DEV DEV FS SCH ×2 (06:49→11:30)
--- NOTE | 2017-04-04 06:50 | NUR ---
PT C/O PAIN AND ASKING FOR DILAUDID. DILAUDID 1 MG IVP GIVEN AT [address]. [address]. RICHARDSON. STATED HE WILL JUST TALK TO THE PATIENT DURING MORNING ROUNDS.
[2017-04-04 07:04] LABS: ANION GAP 10.5 (8-16); CARBON DIOXIDE 26.2 mmol/L (21-32); CREATININE 0.7 mg/dL (0.6-1.3); POTASSIUM 4.7 mmol/L (3.5-5.1)
--- NOTE | 2017-04-04 07:05 | NUR ---
ENDORSED PT TO DAY SHIFT NURSE. PT IN STABLE CONDITION.
--- NOTE | 2017-04-04 07:06 | NUR ---
RECEIVED REPORT FROM HEARING AID SPECIALIST NURSE. PATIENT SITTING IN BED WATCHING TV. IN STABLE CONDITION. NO DISTRESS NOTED. COMPLAINTS OF 6/10 LOW BACK PAIN D/T SCIATICA, WILL MEDICATE PER ORDERS. RESPIRATIONS EVEN, UNLABORED, ON ROOM AIR. AAOX4, CALM, COOPERATIVE, SKIN COLOR APPROPRIATE TO ETHNICITY, WARM TO TOUCH. IV SITE INTACT, PATENT, AND INFUSING IVF PER ORDERS. LUNGS CTA ON ALL LOBES. ABDOMEN SOFT, NON-DISTENDED, A LITTLE TENDER, NO COMPLAINTS OF ABDOMINAL PAIN. SKIN INTACT, NO WOUNDS/LESIONS NOTED THROUGHOUT BODY. PATIENT ABLE TO AMBULATE TO BATHROOM AND BACK TO BED WITH STEADY GAIT. REVIEWED PLAN OF CARE WITH PATIENT. PATIENT VERBALIZED UNDERSTANDING. SAFETY MEASURES IN PLACE, CALL LIGHT WITHIN REACH. WILL CONTINUE TO MONITOR.
[2017-04-04 07:08] LABS: MAGNESIUM 1.9 mg/dL (1.8-2.4)
[2017-04-04] MEDS ORDERED: CYCLOBENZAPRINE 10 MG TAB PO PRN (07:45)
[2017-04-04 08:00] VITALS: BP 149/87
[2017-04-04] MEDS ORDERED: DICYCLOMINE HCL LIQUID 10 MG/5 ML UDC PO SCH (08:30)
[2017-04-04] MEDS ORDERED: ALUMINUM HYD/MAG/SIMETHICONE 30 ML UDC PO SCH (08:30)
[2017-04-04] MEDS ORDERED: LIDOCAINE VISCOUS 2% 20 ML UDC PO SCH (08:30)
[2017-04-04] MEDS: cloNIDine 0.1 MG TAB PO SCH ×2 (08:45→12:48)
[2017-04-04] MEDS: GABAPENTIN 300 MG CAP PO SCH ×2 (08:45→12:47)
[2017-04-04] MEDS: DOCUSATE SODIUM 100 MG GELCAP PO SCH (08:45)
--- NOTE | 2017-04-04 08:50 | NUR ---
PATIENT SITTING IN BED WATCHING TV. NO DISTRESS NOTED. COMPLAINTS OF LOW BACK PAIN /, DILAUDID GIVEN. OTHER SCHEDULED MEDICATIONS DUE GIVEN. SAFETY MEASURES IN PLACE, CALL LIGHT WITHIN REACH. WILL CONTINUE TO MONITOR.
[2017-04-04] MEDS ORDERED: VITAMIN D 400 IU TAB PO SCH (09:00)
[2017-04-04] MEDS ORDERED: VENLAFAXINE 37.5 MG TAB PO SCH (09:00)
[2017-04-04] MEDS ORDERED: DESVENLAFAXINE SUCCINATE PO SCH (09:00)
[2017-04-04] MEDS ORDERED: NICOTINE TRANSD SYS 21 MG/24 HR PATCH TD SCH (09:00)
[2017-04-04] MEDS ORDERED: SUCRALFATE 1 GM TAB PO SCH (09:00)
[2017-04-04] MEDS ORDERED: LIOTHYRONINE SODIUM 5 MCG PO SCH (09:00)
[2017-04-04] MEDS ORDERED: PANTOPRAZOLE 40 MG INJ VIAL IVP SCH (09:00)
--- NOTE | 2017-04-04 09:16 | NUR ---
PATIENT HAS BEEN SCREENED AND CATEGORIZED MODERATE NUTRITION RISK. PATIENT WILL BE SEEN WITHIN 3-5 DAYS OF ADMISSION. 04/05/17-04/07/[address] Addendum: 04/04/17 at [address] DATE CORRECTION: 04/06/17 - 04/08/[address]
--- NOTE | 2017-04-04 10:40 | NUR ---
PATIENT LYING IN BED SLEEPING, AROUSABLE BY VOICE. NO DISTRESS NOTED. PAIN WITHIN TOLERABLE AT THIS TIME. CONDITION UNCHANGED. DENIES ANY NAUSEA/VOMITING, NOR ANY ABDOMINAL PAIN. SAFETY MEASURES IN PLACE, CALL LIGHT WITHIN REACH. WILL CONTINUE TO MONITOR.
[2017-04-04] MEDS: NICOTINE TRANSD SYS 14 MG/24 HR PATCH TD SCH (11:13)
--- NOTE | 2017-04-04 12:10 | NUR ---
PATIENT SITTING IN BED WITH LUNCH TRAY IN FRONT. NO DISTRESS NOTED. PAIN WITHIN TOLERABLE. PATIENT COMPLAINS OF FEELING ANXIOUS. WILL MEDICATE WITH XANAX. OTHER SCHEDULED MEDICATIONS DUE GIVEN. SAFETY MEASURES IN PLACE, CALL LIGHT WITHIN REACH. WILL CONTINUE TO MONITOR.
[2017-04-04 12:48] VITALS: BP 142/89
[2017-04-04] MEDS: ALPRAZolam 0.5 MG TAB PO PRN (12:48)
--- NOTE | 2017-04-04 13:11 | NUR ---
Clinical review faxed to Abram Encinas at [phone]. clinical review faxed to Mirian interiano at [phone]
[2017-04-04] MEDS ORDERED: PANT40EC PO (13:22)
[2017-04-04] MEDS ORDERED: METF500T PO (13:27)
--- NOTE | 2017-04-04 13:46 | NUR ---
PATIENT GOING TO BE DISCHARGED HOME TODAY WITH ORAL ANTIBIOTICS. PATIENT MADE AWARE AND WILL HAVE MOTHER PICK HER UP AROUND 1400. DISCHARGE INSTRUCTIONS/EDUCATION PROVIDED TO PATIENT IN PREFERRED LANGUAGE OF [place] [facility], FOLLOW-UP VISIT, NEW/CHANGED MEDICATION REGIMEN, DISEASE PROCESS OF GASTROENTERITIS, AND DIET REGIMEN TO FOLLOW AT HOME. ANSWERED ALL OF PATIENT'S QUESTIONS. PATIENT VERBALIZED COMPLETE UNDERSTANDING. IV SITE REMOVED WITH MINIMAL BLOOD AND LUMEN COMPLETELY INTACT. ID BANDS REMOVED. AWAITING FOR MOTHER TO ARRIVE AT HOSPITAL TO TAKE PATIENT HOME.
--- NOTE | 2017-04-04 14:15 | NUR ---
PATIENT'S MOTHER AT [facility] CURB READY TO TAKE PATIENT HOME. ESCORTED PATIENT DOWN TO [facility] VIA AMBULATION. PATIENT REFUSED WHEELCHAIR. PATIENT ABLE TO AMBULATE WITH STEADY GAIT. PATIENT DISCHARGED HOME VIA PRIVATE VEHICLE AT THIS TIME IN STABLE CONDITION.
== END 2017-04-04 14:15 | disposition home or self-care (01) | DRG 249 ==
LOC: MED 10:13 → MTU 14:53
PROVIDERS: ADMIT Family Medicine; ATTEND Family Medicine
DX: A08.4 Viral intestinal infection, unspecified (principal); D68.59 Other primary thrombophilia; E87.2 Acidosis; E11.65 Type 2 diabetes mellitus with hyperglycemia; N28.1 Cyst of kidney, acquired; K57.30 Diverticulosis of large intestine without perforation or abscess without bleeding; E86.0 Dehydration; E78.5 Hyperlipidemia, unspecified; F15.10 Other stimulant abuse, uncomplicated; F11.10 Opioid abuse, uncomplicated; F41.1 Generalized anxiety disorder; M47.896 Other spondylosis, lumbar region; F43.9 Reaction to severe stress, unspecified; E03.9 Hypothyroidism, unspecified; E87.6 Hypokalemia; I10 Essential (primary) hypertension; F32.9 Major depressive disorder, single episode, unspecified; G47.00 Insomnia, unspecified; F17.200 Nicotine dependence, unspecified, uncomplicated; Z88.8 Allergy status to other drugs, medicaments and biological substances; Z87.442 Personal history of urinary calculi; Z80.8 Family history of malignant neoplasm of other organs or systems
CPT/HCPCS: 36415; 71010; 80048; 80053; 80305; 81003; 82140; 82150; 82948; 83036; 83605; 83690; 83735; 84100; 84439; 84443; 84484; 84703; 85025; 85610; 87040; 87081; 87086; 87804; 93005; 93925; 93970; 96361; 96365; 96375; 96376; 99285; C9113; G0482; J1170; J1815; J1885; J2270; J2405; J2543; J7030; J7042; J7060; Q0092; Q9967

== ENCOUNTER 2017-05-03 05:03 | Emergency (ER) | payer OTHER ==
[~2017-05-03] VITALS: Ht 165.1 cm; Wt 77.1 kg
[~2017-05-03 05:03] MED LIST changes: +METF500T PO; +PANT40EC PO
[2017-05-03 05:10] VITALS: BP 131/76
--- NOTE | 2017-05-03 05:16 | NUR ---
51/F CAME IN W C/O RASHES TO LT EAR AND MOUTH SORES, PT STATES "MY HERPES ACTS OUT WHEN IM STRESS". LT OUTER EAR NOTED WITH REDNESS, DENIES DISCHARGES, SORES NOTED ON LIPS. DENIES FEVER/CHILLS, SOB/COUGH, N/V/D. DENIES OTHER PMH/RX/OTC
--- NOTE | 2017-05-03 05:16 | NUR ---
PT. AMBULATED TO ER OF 2
--- NOTE | 2017-05-03 06:09 | NUR ---
Patient discharged with v/s stable. Written and verbal after care instructions given and explained. Patient alert, oriented and verbalized understanding of instructions. Ambulatory with steady gait. All questions addressed prior to discharge. ID band removed. Patient advised to follow up with PMD. Rx of MUPIROCIN AND KEFLEX given. Patient educated on indication of medication including possible reaction and side effects. Opportunity to ask questions provided and answered.
[2017-05-03 06:14] VITALS: BP 118/70
== END 2017-05-03 06:09 | disposition home or self-care (01) ==
LOC: MED 05:03
DX: L01.00 Impetigo, unspecified (principal); I10 Essential (primary) hypertension; F17.210 Nicotine dependence, cigarettes, uncomplicated; Z88.6 Allergy status to analgesic agent
CPT/HCPCS: 99283

== ENCOUNTER 2017-05-29 10:00 | Inpatient (IN) | payer OTHER ==
[~2017-05-29] VITALS: Ht 160 cm; Wt 76.2 kg
[2017-05-29 10:09] VITALS: BP 129/73
--- NOTE | 2017-05-29 10:30 | NUR ---
51/F BIB MOM c/o epigastric constant dull pain and lower back pain x 6 days.unable to tolerate po's--repeated n/v/d. taking PO's worsen epigastric pain hx---pancreatitis, kidney stones, insomnia, depression, thyroid. SKIN IS PINK/WARM/DRY; AAOX4 WITH EVEN AND STEADY GAIT; LUNGS CLEAR BL; PT DENIES ANY FEVER, CP, SOB, OR COUGH AT THIS TIME; PATIENT STATES PAIN OF 8/10 AT THIS TIME; PATIENT POSITIONED FOR COMFORT; HOB ELEVATED; BEDRAILS UP X2; BED DOWN. ER MD MADE AWARE OF PT STATUS.
--- NOTE | 2017-05-29 10:49 | NUR ---
Patient being evaluated by DR COOK at bedside.
[2017-05-29] MEDS ORDERED: HYDROmorphone PFS 2 MG/ML SYR IVP ONE ×3 (10:55→13:45)
[2017-05-29] MEDS ORDERED: NACL 0.9% 1,000 ML IV ONE ×3 (10:55→13:40)
[2017-05-29] MEDS ORDERED: ONDANSETRON 4 MG/2 ML VIAL IVP ONE (10:55)
[2017-05-29 11:26] LABS: HEMATOCRIT 50.1 % (36-48); HEMOGLOBIN 16.3 g/dL (12.0-16.0); MEAN CORPUSCULAR HEMOGLOBIN 27 pg (27-31); MEAN CORPUSCULAR HGB CONC 33 g/dL (33-37); MEAN CORPUSCULAR VOLUME 84 fL (80-94); PLATELET COUNT (AUTO) 345 K/uL (140-450); RED BLOOD CELL COUNT(AUTO) 5.96 MIL/uL (4.20-5.40); RED CELL DISTRIBUTION WIDTH 13.1 % (11.6-13.7); WHITE BLOOD COUNT (AUTO) 13.3 K/uL (4.8-10.8)
[2017-05-29 11:38] LABS: EOSINOPHILS % (MANUAL) 3 % (0-4); LYMPHOCYTES % (MANUAL) 40 % (20-46); MONOCYTES % (MANUAL) 5 % (5-12)
[2017-05-29 11:39] LABS: ANION GAP 16.3 (8-16); CARBON DIOXIDE 26.4 mmol/L (21-32); CREATININE 0.8 mg/dL (0.6-1.3); POTASSIUM 4.7 mmol/L (3.5-5.1)
[2017-05-29 11:53] LABS: ALBUMIN 3.9 g/dL (3.4-5.0); TOTAL BILIRUBIN 0.3 mg/dL (0.0-1.0)
[2017-05-29 11:55] LABS: APPEARANCE,URINE CLEAR (CLEAR); BILIRUBIN,URINE NEGATIVE (NEGATIVE); BLOOD, URINE NEGATIVE (NEGATIVE); COLOR,URINE YELLOW (YELLOW); LEUKOCYTE ESTERASE ,URINE NEGATIVE (NEGATIVE); NITRITE, URINE NEGATIVE (NEGATIVE); UGLUCOSE NEGATIVE (NEGATIVE)
--- NOTE | 2017-05-29 12:08 | NUR ---
Patient appears to be resting comfortably in bed. Vital Signs within normal limits. Respirations even and unlabored.WILL CONTINUE TO MONITOR
[2017-05-29] MEDS ORDERED: cefTRIAXone 1,000 MG VIAL ONE (12:44)
[2017-05-29] MEDS ORDERED: metroNIDAZOLE 500 MG/NS PREMIX 100 ML IV ONE (13:45)
[2017-05-29 15:30] VITALS: BP 138/64
--- NOTE | 2017-05-29 15:30 | NUR ---
Admitted from ED , with chief complaint of N&V, DIARRHEA X6 DAYS. NO SOB NOTED. NO C/O PAIN AT THIS TIME. IV TO LT AC PATENT AND INTACT. CHEST CLEAR. ABDOMEN SOFT, BOWEL SOUNDS PRESENT. NO EDEMA NOTED. PT AMBULATORY TO THE BATHROOM. PT IS A 51 y/o ,Female, Cooperative,oriented to call light, bed, phone,television, bathroom, smoking policy, visiting hours, procedures, ID bracelet on. Belongings list checked. INSTRUCTED PT TO CALL FOR ASSISTANCE, CALL LIGHT WITHIN REACH. PT VERBALIZED UNDERSTANDING.
--- NOTE | 2017-05-29 15:31 | NUR ---
Patient will be admitted to care of DR DUNBAR. Admited to MS. Will go to room 112B. Belongings list completed. Report to CHARLY RODGERS.
[2017-05-29] MEDS ORDERED: ONDANSETRON 4 MG/2 ML VIAL IVP PRN (16:45)
[2017-05-29] MEDS ORDERED: DEXTROSE 50% 50 ML SYR IVP PRN (16:45)
[2017-05-29] MEDS ORDERED: ACETAMINOPHEN 325 MG TAB PO PRN (16:45)
[2017-05-29] MEDS ORDERED: INSULIN LISPRO SLIDING SCALE 100 UNITS/ML VIAL SUBQ PRN (16:45)
[2017-05-29] MEDS ORDERED: IBUPROFEN 600 MG TAB PO PRN (16:45)
[2017-05-29] MEDS ORDERED: hydrOXYzine PAMOATE 25 MG CAP PO SCH (17:00)
[2017-05-29] MEDS ORDERED: metFORMIN 500 MG TAB PO SCH (17:00)
[2017-05-29] MEDS ORDERED: cloNIDine 0.1 MG TAB PO SCH (17:00)
--- NOTE | 2017-05-29 17:30 | NUR ---
PT SEEN BY Majo PEARSON AT THE BEDSIDE WITH NEW ORDER.
[2017-05-29] MEDS: GABAPENTIN 300 MG CAP PO SCH ×2 (17:39→21:15)
[2017-05-29] MEDS: HYDROcodone/APAP 5/325 MG 1 TAB TAB PO PRN (17:42)
[2017-05-29] MEDS: ALPRAZolam 0.5 MG TAB PO PRN (17:42)
[2017-05-29] MEDS ORDERED: PNEUMOCOCCAL VACCINE 23 MCG/0.5 ML VIAL IMVAC SCH ×2 (17:45→17:50)
--- NOTE | 2017-05-29 19:25 | NUR ---
PT RESTING. NO SOB NOTED. NO C/O PAIN AT THIS TIME. WILL ENDORSE TO NEXT SHIFT NURSE FOR CONTINUITY OF CARE.
--- NOTE | 2017-05-29 19:30 | NUR ---
RECEIVED BEDSIDE REPORT FROM DAY SHIFT NURSE ANA MARIA RN, PT STABLE, NO DISTRESS NOTED, IV TO L AC 20G SL, PATENT, INTACT, PT ON ROOM AIR NO SOB, INITIAL ASSESSMENT DONE, ALL SAFETY PRECAUTION MET, WILL CONTINUE TO MONITOR.
[2017-05-29 20:00] VITALS: BP 106/62
[2017-05-29] MEDS: HYDROmorphone PFS 2 MG/ML SYR IVP PRN (20:03)
--- NOTE | 2017-05-29 20:03 | NUR ---
PT C/O OF PAIN ON THE BACK 8/10 RADIATING TO THE R LEG, PT STABLE, NO DISTRESS NOTED, PAIN MEDICATION GIVEN, PT TOLERATED WELL, WILL CONTINUE TO MONITOR.
--- NOTE | 2017-05-29 20:42 | NUR ---
CALLED DR. MAURICE REGARDING PT C/O NEEDING SLEEPING MEDICATION, STATED UNDERSTANDING, TO ORDER AMBIEN 5MG PO PRN INSOMNIA, WILL PUT IN ORDER AND CONTINUE WITH ORDERS.
[2017-05-29] MEDS ORDERED: ZOLPIDEM 5 MG TAB PO PRN (20:45)
--- NOTE | 2017-05-29 21:15 | NUR ---
DUE MEDICATION GIVEN, PT TOLERATED WELL, NO DISTRESS NOTED, CALL LIGHT WITHIN REACH, WILL CONTINUE TO MONITOR.
[2017-05-29] MEDS: BLOOD GLUCOSE MONITORING 1 DEV DEV FS SCH (21:17)
[2017-05-30] VITALS: BP 117/73
--- NOTE | 2017-05-30 00:14 | NUR ---
DR. PINA ORDERED STOOL SAMPLE, PT HAS NOT DONE ANY BOWEL MOVEMENT, UNABLE TO COLLECT SAMPLE, WILL CONTINUE TO MONITOR.
[2017-05-30] MEDS: HYDROcodone/APAP 5/325 MG 1 TAB TAB PO PRN (00:33)
[2017-05-30] MEDS: HYDROmorphone PFS 2 MG/ML SYR IVP PRN (01:56)
[2017-05-30] MEDS: ALPRAZolam 0.5 MG TAB PO PRN (01:56)
--- NOTE | 2017-05-30 01:56 | NUR ---
PT C/O OF PAIN 01/21. PAIN MEDICATION GIVEN, PT TOLERATED WELL, NO DISTRESS NOTED, CALL LIGHT WITHIN REACH. Addendum: 05/30/17 at 0611 by Yakelin Cash RN PT ALSO COMPLAINED OF FEELING ANXIOUS, AND REQUESTED TO HAVE HER ANXIETY MEDICATION. ANXIETY MEDICATION GIVEN.
--- NOTE | 2017-05-30 02:40 | NUR ---
PT C/O OF PAIN AGAIN, 11/21 REPORTED PAIN IS COMING BACK AGAIN, PAIN MEDICATION IS NOT DUE YET, EDUCATED PT REGARDING PAIN MEDICATION, PT STATED SHE WILL WAIT FOR PAIN MEDICATION. NO DISTRESS NOTED, CALL LIGHT WITHIN REACH, WILL CONTINUE TO MONITOR.
--- NOTE | 2017-05-30 04:37 | NUR ---
DUE MEDICATION GIVEN, PT TOLERATED WELL, NO DISTRESS NOTED, CALL LIGHT WITHIN REACH. WILL CONTINUE TO MONITOR.
[2017-05-30] MEDS ORDERED: metroNIDAZOLE 500 MG/NS PREMIX 100 ML IV SCH (05:00)
--- NOTE | 2017-05-30 05:43 | NUR ---
DUE MEDICATION GIVEN, PT TOLERATED WELL, NO DISTRESS NOTED, CALL LIGHT WITHIN REACH, WILL CONTINUE TO MONITOR.
[2017-05-30] MEDS: BLOOD GLUCOSE MONITORING 1 DEV DEV FS SCH (05:47)
[2017-05-30] MEDS ORDERED: PANTOPRAZOLE 40 MG TABEC PO SCH (06:30)
--- NOTE | 2017-05-30 06:39 | NUR ---
PT STATED SHE DID NOT WANT TO STAY HERE ANYMORE, EXPLAINED TO PATIENT THE RISK OF LEAVING, PT STATED UNDERSTANDING, AND SIGNED AMA FORM.
--- NOTE | 2017-05-30 06:40 | NUR ---
PAGED DR. MAURICE TO INFORM ABOUT PT AMA, AWAITING FOR CALL BACK.
--- NOTE | 2017-05-30 06:53 | NUR ---
PT LEFT UNIT, IV TAKEN OUT CATH INTACT, WRISTBAND TAKEN OFF, PT STABLE, NO DISTRESS NOTED.
[2017-05-30 07:16] LABS: BASOPHILS % (AUTO) 0.3 % (0.0-2.0); EOSINOPHILS # (AUTO) 0.1 K/uL (0-0.4); EOSINOPHILS % (AUTO) 0.9 % (0.0-4.0); HEMATOCRIT 29.6 % (36-48); LYMPHOCYTES % (AUTO) 11.1 % (20.5-51.1); MEAN CORPUSCULAR HEMOGLOBIN 28 pg (27-31); MEAN CORPUSCULAR HGB CONC 34 g/dL (33-37); MEAN CORPUSCULAR VOLUME 84 fL (80-94); MONOCYTES # (AUTO) 0.8 K/uL (0.8-1.0); MONOCYTES % (AUTO) 8.5 % (1.7-9.3); NEUTROPHILS # (AUTO) 7.4 K/uL (1.8-7.7); NEUTROPHILS % (AUTO) 79.2 % (42.2-75.2); PLATELET COUNT (AUTO) 244 K/uL (140-450); RED BLOOD CELL COUNT(AUTO) 3.51 MIL/uL (4.20-5.40); RED CELL DISTRIBUTION WIDTH 14.6 % (11.6-13.7); WHITE BLOOD COUNT (AUTO) 9.3 K/uL (4.8-10.8)
--- NOTE | 2017-05-30 08:13 | NUR ---
DR. MAURICE CALLED BACK, INFORMED DR. ANTHONY LEFT JORGE, STATED UNDERSTANDING
[2017-05-30] MEDS ORDERED: TAMSULOSIN 0.4 MG CAP PO SCH (08:30)
[2017-05-30 08:44] LABS: MAGNESIUM 1.7 mg/dL (1.8-2.4); PHOSPHORUS 2.1 mg/dL (2.5-4.9)
[2017-05-30 08:57] LABS: ANION GAP 11.3 (8-16); CARBON DIOXIDE 26.5 mmol/L (21-32); CREATININE 1.2 mg/dL (0.6-1.3); POTASSIUM 3.8 mmol/L (3.5-5.1)
[2017-05-30] MEDS ORDERED: LIOTHYRONINE SODIUM 5 MCG PO SCH (09:00)
[2017-05-30] MEDS ORDERED: DESVENLAFAXINE SUCCINATE PO SCH (09:00)
[2017-05-30] MEDS ORDERED: VITAMIN D 400 IU TAB PO SCH (09:00)
--- NOTE | 2017-05-30 15:08 | NUR ---
CM NOTE PATIENT INFORMATION FAXED TO [facility] / FAX# [phone]
[2017-05-30] MEDS ORDERED: LEVOFLOXACIN 500 MG/D5W PREMIX 100 ML IV SCH ×2 (21:00)
== END 2017-05-30 06:53 | disposition left against medical advice (07) | DRG 720 ==
LOC: MED 10:00 → MTU 14:55
PROVIDERS: ADMIT Preventive Medicine Preventive Medicine/Occupational Environmental Medicine; ATTEND Preventive Medicine Preventive Medicine/Occupational Environmental Medicine
DX: A41.9 Sepsis, unspecified organism (principal); E11.65 Type 2 diabetes mellitus with hyperglycemia; I10 Essential (primary) hypertension; D75.1 Secondary polycythemia; E03.9 Hypothyroidism, unspecified; F17.200 Nicotine dependence, unspecified, uncomplicated; F32.9 Major depressive disorder, single episode, unspecified; G47.00 Insomnia, unspecified; K52.9 Noninfective gastroenteritis and colitis, unspecified; Z87.442 Personal history of urinary calculi; Z88.8 Allergy status to other drugs, medicaments and biological substances
CPT/HCPCS: 36415; 80048; 80053; 81003; 82150; 82948; 83605; 83690; 83735; 84100; 84484; 84703; 85025; 85610; 87040; 87081; 93005; 96361; 96365; 96367; 96375; 96376; 99285; J0696; J1170; J1815; J1956; J2405; J3490; J7030; Q0177

== ENCOUNTER 2017-06-04 13:44 | Emergency (ER) | payer OTHER ==
[~2017-06-04] VITALS: Ht 167.6 cm; Wt 76.2 kg
[2017-06-04 13:54] VITALS: BP 167/97
[2017-06-04] MEDS ORDERED: KETOROLAC 30 MG/ML VIAL IVP ONE (14:35)
[2017-06-04] MEDS ORDERED: NACL 0.9% 1,000 ML IV ONE (14:35)
[2017-06-04] MEDS ORDERED: ONDANSETRON 4 MG/2 ML VIAL IVP ONE (14:35)
--- NOTE | 2017-06-04 14:45 | NUR ---
PATIENT PRESENTS TO ED WITH C/O N/V/D AND FEVERS X 2 DAYS, WITH GENERALIZED ABD PAIN 10/10. DENIES DYSURIA. TOOK 12MG OF ZOFRAN TODAY MED HX:GASTRITIS, CHOLECYSTISTIS, KIDNEY STONES, SCIATICA, IMSOMNIA RX: ZOFRAN, CLONIDINE, NEURONTIN, XANAX; SKIN IS PINK/WARM/DRY; AAOX4 WITH EVEN AND STEADY GAIT; LUNGS CLEAR BL; HR EVEN AND REGULAR; PT DENIES ANY FEVER, CP, SOB, OR COUGH AT THIS TIME; PATIENT STATES PAIN OF 10/10 AT THIS TIME; VSS; PATIENT POSITIONED FOR COMFORT; HOB ELEVATED; BEDRAILS UP X2; BED DOWN. ER MD MADE AWARE OF PT STATUS.
[2017-06-04 14:51] LABS: BASOPHILS # (AUTO) 0.1 K/uL (0.00-0.22); BASOPHILS % (AUTO) 0.8 % (0.0-2.0); EOSINOPHILS # (AUTO) 0.1 K/uL (0-0.4); EOSINOPHILS % (AUTO) 0.8 % (0.0-4.0); HEMOGLOBIN 15.8 g/dL (12.0-16.0); LYMPHOCYTES # (AUTO) 3.1 K/uL (2.5-16.5); LYMPHOCYTES % (AUTO) 19.8 % (20.5-51.1); MEAN CORPUSCULAR HEMOGLOBIN 27 pg (27-31); MEAN CORPUSCULAR HGB CONC 32 g/dL (33-37); MEAN CORPUSCULAR VOLUME 85 fL (80-94); MONOCYTES # (AUTO) 0.3 K/uL (0.8-1.0); MONOCYTES % (AUTO) 1.7 % (1.7-9.3); NEUTROPHILS % (AUTO) 76.9 % (42.2-75.2); PLATELET COUNT (AUTO) 356 K/uL (140-450); RED BLOOD CELL COUNT(AUTO) 5.77 MIL/uL (4.20-5.40); RED CELL DISTRIBUTION WIDTH 13.1 % (11.6-13.7); WHITE BLOOD COUNT (AUTO) 15.6 K/uL (4.8-10.8)
[2017-06-04 15:07] LABS: PROTHROMBIN TIME 11.1 secs (10.8-13.4)
[2017-06-04 15:10] LABS: ALBUMIN 3.9 g/dL (3.4-5.0); ANION GAP 15.8 (8-16); CARBON DIOXIDE 25.4 mmol/L (21-32); POTASSIUM 4.2 mmol/L (3.5-5.1); TOTAL BILIRUBIN 0.4 mg/dL (0.0-1.0)
[2017-06-04] MEDS ORDERED: MORPHINE SULFATE 4 MG/ML SYR IVP ONE ×2 (15:10→17:10)
--- NOTE | 2017-06-04 15:17 | NUR ---
PT REFUSED TORADOL D/T ALLERGY, DR HERZOG NOTIFIED, ORDERED MORPHINE INSTEAD
--- NOTE | 2017-06-04 16:00 | NUR ---
FLU A&B SAMPLE TAKEN AND GIVEN TO SHIRT SEWER HOMAR
--- NOTE | 2017-06-04 16:21 | NUR ---
AAO PT AMBULATES TO THE RESTROOM
[2017-06-04 16:58] LABS: APPEARANCE,URINE CLEAR (CLEAR); BILIRUBIN,URINE NEGATIVE (NEGATIVE); BLOOD, URINE NEGATIVE (NEGATIVE); COLOR,URINE YELLOW (YELLOW); LEUKOCYTE ESTERASE ,URINE NEGATIVE (NEGATIVE); NITRITE, URINE NEGATIVE (NEGATIVE); PH,URINE 5.5 (5.0-9.0); UGLUCOSE NEGATIVE (NEGATIVE)
[2017-06-04] MEDS ORDERED: PIPERACILLIN/TAZOBACTAM 3.375 GM in DEXTROSE 5% 50 ML IV ONE (17:10)
[2017-06-04] MEDS ORDERED: PIPERACILLIN/TAZOBACTAM 3.375 GM VIAL IV ONE (17:14)
[2017-06-04] MEDS ORDERED: PIPER/TAZO 3.375GM/D5W PREMIX 50 ML IV SCH (17:20)
[2017-06-04 18:48] VITALS: BP 144/88
--- NOTE | 2017-06-04 18:49 | NUR ---
Patient discharged with v/s stable. Written and verbal after care instructions given and explained. Patient alert, oriented and verbalized understanding of instructions. Ambulatory with steady gait. All questions addressed prior to discharge. ID band removed. Patient advised to follow up with PMD. Rx of ZOFRAN AND TRAMADOL given. Patient educated on indication of medication including possible reaction and side effects. Opportunity to ask questions provided and answered.
== END 2017-06-04 18:49 | disposition home or self-care (01) ==
LOC: MED 13:44
DX: R10.9 Unspecified abdominal pain (principal); R11.2 Nausea with vomiting, unspecified; M79.1 Myalgia; Z90.49 Acquired absence of other specified parts of digestive tract; Z79.84 Long term (current) use of oral hypoglycemic drugs; Z79.899 Other long term (current) drug therapy; Z88.8 Allergy status to other drugs, medicaments and biological substances
CPT/HCPCS: 36415; 74176; 80053; 81003; 82150; 83690; 85025; 85610; 85730; 87804; 96361; 96365; 96375; 99285; J2270; J2405; J2543; J7030; J1885

== ENCOUNTER 2017-07-17 15:26 | Emergency (ER) | payer OTHER ==
[~2017-07-17] VITALS: Ht 165.1 cm; Wt 77.6 kg
[2017-07-17 15:37] VITALS: BP 138/101
--- NOTE | 2017-07-17 15:41 | NUR ---
PT SENT TO LOBBY TO WAIT FOR A BED/CHAIR.
--- NOTE | 2017-07-17 16:20 | NUR ---
PT TAKEN TO CHAIR Den.
--- NOTE | 2017-07-17 16:27 | NUR ---
51Y/F C/O RASH TO SCALP FOR THE PAST 1 MONTH; PT SEEN BY PMD AND WAS GIVEN A CREAM WITH NO IMPROVMENT; PT STATES IT'S SPREADING TO HER EAR.HX; DENIES. PATIENT POSITIONED FOR COMFORT; ER MD MADE AWARE OF PT STATUS.
[2017-07-17] MEDS ORDERED: diphenhydrAMINE 50 MG/ML VIAL IM ONE (16:45)
[2017-07-17] MEDS ORDERED: DEXAMETHASONE 10 MG/ML VIAL IM ONE (16:45)
[2017-07-17] MEDS ORDERED: ACETAMINOPHEN EXTRA STRENGTH 500 MG TAB PO ONE (17:05)
[2017-07-17 17:21] VITALS: BP 135/100
--- NOTE | 2017-07-17 17:21 | NUR ---
Patient discharged with v/s stable. Written and verbal after care instructions given and explained. Patient alert, oriented and verbalized understanding of instructions. Ambulatory with steady gait. All questions addressed prior to discharge. ID band removed. Patient advised to follow up with PMD. Rx of MUPIROCIN 2%, KEFLEX, NORCO given. Patient educated on indication of medication including possible reaction and side effects. Opportunity to ask questions provided and answered.
== END 2017-07-17 17:21 | disposition home or self-care (01) ==
LOC: MED 15:26
DX: L01.00 Impetigo, unspecified (principal); Z79.84 Long term (current) use of oral hypoglycemic drugs; Z79.899 Other long term (current) drug therapy; Z88.8 Allergy status to other drugs, medicaments and biological substances
CPT/HCPCS: 96372; 99284; J1100; J1200

== ENCOUNTER 2017-07-27 16:08 | Emergency (ER) | payer OTHER ==
[~2017-07-27] VITALS: Ht 165.1 cm; Wt 77.3 kg
[2017-07-27 16:14] VITALS: BP 148/126
[2017-07-27 16:55] VITALS: BP 145/123
== END 2017-07-27 16:54 | disposition home or self-care (01) ==
LOC: MED 16:08
DX: L30.8 Other specified dermatitis (principal)
CPT/HCPCS: 99283

== ENCOUNTER 2017-08-19 10:06 | Inpatient (IN) | payer OTHER ==
[~2017-08-19] VITALS: Ht 162.6 cm; Wt 81.2 kg
[2017-08-19 10:10] VITALS: BP 152/82
--- NOTE | 2017-08-19 10:15 | NUR ---
PATIENT BIB EMS WITH C/O SEVERE ABDOMINAL PAIN RADIATING TO BACK SINCE THIS MORNING, NAUEA AND VOMITING, ZOFRAN 4MG GIVEN BY EMS. HX OF KINEY STONE, DM, GERD, HYPERLIPIDEMIA. TX: METFORMIN, SIMVASTATIN, PROTONIX . PATIENT STATES PAIN OF 10/10 AT THIS TIME; VSS; PATIENT POSITIONED FOR COMFORT; HOB ELEVATED; BEDRAILS UP X2; BED DOWN. ER MD MADE AWARE OF PT STATUS.
--- NOTE | 2017-08-19 10:20 | NUR ---
Patient being evaluated by physician at bedside.
[2017-08-19] MEDS ORDERED: NACL 0.9% 1,000 ML IV SCH (10:29)
[2017-08-19] MEDS ORDERED: MORPHINE SULFATE 10 MG/ML SYR IVP ONE (10:30)
[2017-08-19] MEDS ORDERED: ONDANSETRON 4 MG/2 ML VIAL IVP ONE (10:30)
[2017-08-19] MEDS ORDERED: MORPHINE SULFATE 4 MG/ML SYR IVP ONE ×2 (10:50→11:40)
[2017-08-19 11:00] LABS: BASOPHILS # (AUTO) 0.1 K/uL (0.00-0.22); BASOPHILS % (AUTO) 0.4 % (0.0-2.0); HEMATOCRIT 45.6 % (36-48); HEMOGLOBIN 14.9 g/dL (12.0-16.0); LYMPHOCYTES # (AUTO) 1.6 K/uL (2.5-16.5); LYMPHOCYTES % (AUTO) 9.6 % (20.5-51.1); MEAN CORPUSCULAR HEMOGLOBIN 27 pg (27-31); MEAN CORPUSCULAR HGB CONC 33 g/dL (33-37); MEAN CORPUSCULAR VOLUME 83.8 fL (80-94); MONOCYTES # (AUTO) 0.4 K/uL (0.8-1.0); MONOCYTES % (AUTO) 2.4 % (1.7-9.3); NEUTROPHILS # (AUTO) 14.4 K/uL (1.8-7.7); NEUTROPHILS % (AUTO) 87.6 % (42.2-75.2); PLATELET COUNT (AUTO) 279 K/uL (140-450); RED BLOOD CELL COUNT(AUTO) 5.44 MIL/uL (4.20-5.40); RED CELL DISTRIBUTION WIDTH 13.7 % (11.6-13.7); WHITE BLOOD COUNT (AUTO) 16.5 K/uL (4.8-10.8)
[2017-08-19 11:10] LABS: ANION GAP 16.9 (8-16); CARBON DIOXIDE 24.6 mmol/L (21-32); CREATININE 0.9 mg/dL (0.6-1.3); POTASSIUM 3.5 mmol/L (3.5-5.1)
[2017-08-19 11:10] LABS: APPEARANCE,URINE CLEAR (CLEAR); BILIRUBIN,URINE NEGATIVE (NEGATIVE); BLOOD, URINE NEGATIVE (NEGATIVE); COLOR,URINE YELLOW (YELLOW); LEUKOCYTE ESTERASE ,URINE NEGATIVE (NEGATIVE); NITRITE, URINE NEGATIVE (NEGATIVE); PH,URINE 8.5 (5.0-9.0); UGLUCOSE NEGATIVE (NEGATIVE)
[2017-08-19 11:17] LABS: ALBUMIN 3.9 g/dL (3.4-5.0); TOTAL BILIRUBIN 0.4 mg/dL (0.0-1.0)
--- NOTE | 2017-08-19 11:25 | NUR ---
EKG DONE AT BEDSIDE
--- NOTE | 2017-08-19 11:28 | NUR ---
OBTAINED CRITICAL LAB RESULT OF LACTIC ACID 2.6, ER MADE AWARE.
[2017-08-19] MEDS ORDERED: NACL 0.9% 1,000 ML IV ONE (11:30)
[2017-08-19 11:39] LABS: RBC,URINE NONE SEEN /HPF (0-5); WBC,URINE 0-5 (RARE) /HPF (0-5)
[2017-08-19] MEDS ORDERED: cefTRIAXone 1,000 MG VIAL ONE (11:42)
[2017-08-19] MEDS: NACL 0.9% 1,000 ML IV SCH ×2 (12:38→22:58)
[2017-08-19] MEDS ORDERED: ACETAMINOPHEN 325 MG TAB PO PRN (12:40)
[2017-08-19] MEDS ORDERED: ONDANSETRON 4 MG/2 ML VIAL IVP PRN (12:40)
--- NOTE | 2017-08-19 13:00 | NUR ---
PT STILL IN PAIN, 11/21, MD AWARE, WILL ADMITTED TO HOSPITAL, WAITING FOR A ROOM.
[2017-08-19 13:14] LABS: BARBITURATE, URINE NEG. ng/ml (NEG <=200); BENZODIAZEPINE, URINE NEG. ng/mL (NEG <=200); CANNABINOID, URINE NEG. ng/mL (NEG <=50); COCAINE, URINE NEG. ng/mL (NEG <=300); OPIATE, URINE POS. ng/mL (NEG <=2000); PHENCYCLIDINE SCREEN,URINE NEG. ng/mL (NEG <=25)
[2017-08-19 14:00] VITALS: BP 137/55
--- NOTE | 2017-08-19 14:00 | NUR ---
Patient will be admitted to care of DR. RAPP. Admited to TELE. Will go to room 120B. Belongings list completed. Report to CHARLY BARAJAS AT BEDSIDE.
--- NOTE | 2017-08-19 14:00 | NUR ---
RECEIVED PATIENT ON UNIT VIA GURNEY, PT IS AAOX4, AMBULATES WITH ASSIST, PT HAS IV ON HER LEFT AC, PATENT, INTACT, FLUSHING WELL, NO S/S OF RESPIRATORY DISTRESS OR DISCOMFORT NOTED, SKIN IS INTACT, ORIENTED PT TO ROOM, DISCUSSED PLAN OF CARE WITH PT, PT VERBALIZED UNDERSTANDING, SAFETY/FALL PRECAUTIONS ARE IN PLACE, CALL LIGHT IS WITHIN REACH, WILL CONTINUE TO MONITOR.
[2017-08-19] MEDS ORDERED: ALPRAZOLAM PO PRN (14:50)
[2017-08-19] MEDS ORDERED: IBUPROFEN 600 MG TAB PO PRN (14:50)
[2017-08-19 14:55] LABS: FREE T4 (FREE THYROXINE) 0.88 ng/dL (0.76-1.46); MAGNESIUM 1.8 mg/dL (1.8-2.4); PHOSPHORUS 3.7 mg/dL (2.5-4.9); THYROID STIMULATING HORMONE 0.19 uIU/mL (0.34-3.74)
--- NOTE | 2017-08-19 15:30 | NUR ---
PT REFUSED CT-SCAN AT THIS TIME. I LET HER KNOW I WOULD GIVE HER MEDICATION FOR HER PAIN AND I WOULD NOTIFY RADIOLOGY TO COME AND PICK HER UP FOR CT-SCAN IN ABOUT 1 HOUR.
[2017-08-19] MEDS: HYDROcodone/APAP 7.5/325 MG 1 TAB PO PRN (15:31)
[2017-08-19] MEDS: LEVOFLOXACIN 750 MG/D5W PREMIX 150 ML IV SCH (15:31)
[2017-08-19] MEDS: ALPRAZolam 0.5 MG TAB PO PRN (15:36)
[2017-08-19 16:00] VITALS: BP 147/62
[2017-08-19] MEDS: GABAPENTIN 300 MG CAP PO SCH ×2 (17:22→21:08)
[2017-08-19] MEDS: hydrOXYzine PAMOATE 25 MG CAP PO SCH (17:22)
[2017-08-19] MEDS: cloNIDine 0.1 MG TAB PO SCH (17:22)
--- NOTE | 2017-08-19 17:50 | NUR ---
PT SLEEPING IN BED AT THIS TIME, NO S/S OF RESPIRATORY DISTRESS OF DISCOMFORT NOTED, CALL LIGHT WITHIN REACH.
--- NOTE | 2017-08-19 19:30 | NUR ---
REPORT RECIEVED FROM AM SHIFT NURSE HUMERA PARKS IN STABLE CONDITION. PT ALERT AND ORIENTED X 4. PT IS ON TELEMETRY WITH CARDIAC MONITORING AT THIS TIME AND HAS A NSR. IV RUNNING NACL AT 100MLS AN HOUR. IV SITE IS ON THE LEFT AC 18G. PT IS AMBULATORY AND ABLE TO AMBULATE TO BATHROOM ON HER OWN. PT DENIES PAIN. CT SCAN OF ABDOMEN WAS ORDERED BUT PT HAS BEEN RELUCTANT TO GO TO GET THE SCAN. SHE SAID THAT SHE WANTS TO GET SOME SLEEP AND WILL GO LATER. CT DEPARTMENT WAS CALLED AND WILL COME LATER BECAUSE THEY ARE CURRENT BUSY ER. WILL FOLLOW UP WITH CT LATER.
--- NOTE | 2017-08-19 19:30 | NUR ---
ENDORSED PT TO HUMAN RESOURCE ADVISER NURSE FOR CONTINUITY OF CARE. PT STABLE AT THIS TIME.
[2017-08-19 20:00] VITALS: BP 147/86
[2017-08-19] MEDS: metFORMIN 500 MG TAB PO SCH (21:00)
[2017-08-19] MEDS ORDERED: INSULIN LISPRO SLIDING SCALE 100 UNITS/ML VIAL SUBQ PRN (21:00)
[2017-08-19] MEDS ORDERED: DEXTROSE 50% 50 ML SYR IVP PRN (21:00)
[2017-08-19] MEDS: DOCUSATE SODIUM 100 MG GELCAP PO SCH (21:08)
[2017-08-19] MEDS: metroNIDAZOLE 500 MG/NS PREMIX 100 ML IV SCH (21:11)
[2017-08-19] MEDS: BLOOD GLUCOSE MONITORING 1 DEV DEV FS SCH (21:26)
--- NOTE | 2017-08-19 21:31 | NUR ---
GLUCOPHAGE 500 MG HELD DUE TO PT BEING NPO DR BRYANT MADE AWARE. B/S AT THIS TIME IS 120.
[2017-08-20 00:25] VITALS: BP 153/81
[2017-08-20] MEDS: HYDROcodone/APAP 7.5/325 MG 1 TAB PO PRN ×3 (00:28→14:21)
--- NOTE | 2017-08-20 00:35 | NUR ---
PT WAS TAKEN VIA W/C TO CT SCAN.
--- NOTE | 2017-08-20 01:00 | NUR ---
PT RETURNED FROM CT SCAN WILL FOLLOW UP WITH RESULTS.
[2017-08-20] MEDS: ALPRAZolam 0.5 MG TAB PO PRN ×3 (03:41→20:21)
--- NOTE | 2017-08-20 04:00 | NUR ---
PT IN BED REQUESTED XANAX FOR AGGITATION GIVEN ZANAX ORDERED
[2017-08-20] MEDS: PANTOPRAZOLE 40 MG TABEC PO SCH (05:31)
[2017-08-20] MEDS: metroNIDAZOLE 500 MG/NS PREMIX 100 ML IV SCH ×3 (05:31→20:19)
[2017-08-20 05:38] VITALS: BP 145/82
[2017-08-20 05:46] LABS: BASOPHILS % (AUTO) 0.3 % (0.0-2.0); EOSINOPHILS % (AUTO) 0.1 % (0.0-4.0); HEMATOCRIT 43.5 % (36-48); HEMOGLOBIN 14.3 g/dL (12.0-16.0); LYMPHOCYTES # (AUTO) 3.3 K/uL (2.5-16.5); LYMPHOCYTES % (AUTO) 25.8 % (20.5-51.1); MEAN CORPUSCULAR HEMOGLOBIN 27 pg (27-31); MEAN CORPUSCULAR HGB CONC 33 g/dL (33-37); MEAN CORPUSCULAR VOLUME 83.3 fL (80-94); MONOCYTES # (AUTO) 0.9 K/uL (0.8-1.0); MONOCYTES % (AUTO) 7.1 % (1.7-9.3); NEUTROPHILS # (AUTO) 8.6 K/uL (1.8-7.7); NEUTROPHILS % (AUTO) 66.7 % (42.2-75.2); PLATELET COUNT (AUTO) 274 K/uL (140-450); RED BLOOD CELL COUNT(AUTO) 5.22 MIL/uL (4.20-5.40); RED CELL DISTRIBUTION WIDTH 13.9 % (11.6-13.7); WHITE BLOOD COUNT (AUTO) 12.9 K/uL (4.8-10.8)
[2017-08-20] MEDS: NACL 0.9% 1,000 ML IV SCH ×3 (06:07→18:10)
[2017-08-20] MEDS: BLOOD GLUCOSE MONITORING 1 DEV DEV FS SCH ×4 (06:08→20:27)
[2017-08-20 06:16] LABS: ANION GAP 14.7 (8-16); CARBON DIOXIDE 23.6 mmol/L (21-32); CREATININE 0.7 mg/dL (0.6-1.3); POTASSIUM 3.3 mmol/L (3.5-5.1)
[2017-08-20 06:23] LABS: CHOL/HDL RATIO 5.3 (1-4.5); MAGNESIUM 1.9 mg/dL (1.8-2.4); PHOSPHORUS 2.7 mg/dL (2.5-4.9)
--- NOTE | 2017-08-20 07:10 | NUR ---
ENDORSED PT TO AM NURSE IN STABLE CONDITION.
--- NOTE | 2017-08-20 07:11 | NUR ---
RECEIVED REPORT FROM THE CARDIOVASCULAR RN NURSE AT BEDSIDE FOR CONTINUITY OF CARE. PT IS AWAKE AND ORIENTED. INTRODUCED MYSELF AND UPDATED THE BOARD. PT AMBULATES, SKIN INTACT, AND IV ON R AC 18G NS AT 100ML/HR. V/S WITHIN NORMAL LIMITS. C/O LOWER BACK PAIN. PER CARDIOVASCULAR RN NURSE, PT WAS GIVEN NORCO ABOUT AN HOUR AGO. PER PT, IT HASN'T HELPED. WILL TALK TO MD ABOUT PAIN MANAGEMENT. WILL CONTINUE TO MONITOR PT.
[2017-08-20 08:00] VITALS: BP 165/89
[2017-08-20] MEDS ORDERED: KETOROLAC 30 MG/ML VIAL IM PRN (08:45)
[2017-08-20] MEDS: metFORMIN 500 MG TAB PO SCH ×2 (08:52→20:19)
[2017-08-20] MEDS: CHOLECALCIFEROL 1,000 IU TAB PO SCH (08:52)
[2017-08-20] MEDS: hydrOXYzine PAMOATE 25 MG CAP PO SCH ×3 (08:52→17:06)
[2017-08-20] MEDS: GABAPENTIN 300 MG CAP PO SCH ×4 (08:53→20:18)
[2017-08-20] MEDS: DOCUSATE SODIUM 100 MG GELCAP PO SCH ×2 (08:53→20:33)
[2017-08-20] MEDS: cloNIDine 0.1 MG TAB PO SCH ×3 (08:53→17:07)
--- NOTE | 2017-08-20 08:55 | NUR ---
ADMINISTERED MORNING MEDS. HELD COLACE. PER PT, PT HAD DIARRHEA THIS MORNING. MD CAME AND DID ROUNDS. PER PT, MD ORDERED TORADOL FOR PT. WILL CHECK ORDERS AND WILL ADMINISTER DIRECTED. PT TOLERATED WELL. WILL CONTINUE TO MONITOR PT.
--- NOTE | 2017-08-20 08:56 | NUR ---
PATIENT HAS BEEN SCREENED AND CATEGORIZED MODERATE NUTRITION RISK. PATIENT WILL BE SEEN WITHIN 3-5 DAYS OF ADMISSION. 08/22/17 08/24/[address]
[2017-08-20] MEDS ORDERED: DESVENLAFAXINE SUCCINATE PO SCH (09:00)
[2017-08-20] MEDS ORDERED: VITAMIN D 400 IU TAB PO SCH (09:00)
[2017-08-20] MEDS ORDERED: LIOTHYRONINE SODIUM 5 MCG PO SCH (09:00)
--- NOTE | 2017-08-20 11:09 | NUR ---
FAXED INITIAL REVIEW TO [facility] [phone] PHONE [phone] FAXED INITIAL REVIEW TO [facility] [phone]
--- NOTE | 2017-08-20 11:31 | NUR ---
PT UP AND ABOUT GETTING CLEANED UP. NO SIGNS OF DISTRESS. WILL CONTINUE TO MONITOR PT.
--- NOTE | 2017-08-20 11:51 | NUR ---
RECEIVED A CALL FROM EBER FROM [facility], . SHE SAID REVIEWS JUST GO TO [facility] [phone] PHONE [phone]
--- NOTE | 2017-08-20 14:24 | NUR ---
PT HAD ANOTHER BOUT OF DIARRHEA. HAD TO CALL HOUSEKEEPING TO CLEAN THE BATHROOM. CHANGED GOWN AND PADS. ASKED THE MD ABOUT IMODIUM. PER MD, IF ITS BACTERIAL, IT IS BETTER TO HAVE IT EXPELLED THAN TO KEEP IT INSIDE. EXPLAINED TO PT. PT VERBALIZED UNDERSTANDING. ADMINISTERED NORCO FOR LOWER BACK PAIN. WILL CONTINUE TO MONITOR PT.
[2017-08-20] MEDS: LEVOFLOXACIN 750 MG/D5W PREMIX 150 ML IV SCH (15:29)
--- NOTE | 2017-08-20 15:39 | NUR ---
ADMINISTERED LEVAQUIN. PT TOLERATING WELL. PT SNORING. NO SIGNS OF DISTRESS. WILL CONTINUE TO MONITOR PT.
[2017-08-20 16:00] VITALS: BP 144/88
[2017-08-20] MEDS: KETOROLAC 30 MG/ML VIAL IVP PRN ×2 (17:07→23:00)
[2017-08-20] MEDS ORDERED: HYDROcodone/APAP 10/325 MG 1 TAB TAB PO PRN ×2 (17:25→20:05)
--- NOTE | 2017-08-20 17:26 | NUR ---
MD ORDERED NORCO 10MG TO GIVE WITH TORADOL. UNABLE TO INCREASE TORADOL D/T ALREADY AT MAX DOSING PER DAY. NOTIFIED PT.
[2017-08-20] MEDS ORDERED: POTASSIUM CHLORIDE 10 MEQ TABER PO SCH (18:00)
[2017-08-20] MEDS ORDERED: HYDRAGUARD CREAM TP ONE (18:06)
[2017-08-20] MEDS: SKINTEGRITY HYDROGEL TP SCH (18:09)
--- NOTE | 2017-08-20 19:15 | NUR ---
ENDORSED PT TO THE GUARD IMMIGRATION NURSE AT BEDSIDE FOR CONTINUITY OF CARE. PT IS IN STABLE CONDITION.
[2017-08-20] MEDS ORDERED: HYDROcodone/APAP 10/325 MG 1 TAB TAB ONE (20:17)
--- NOTE | 2017-08-20 20:18 | NUR ---
PT COMPLAINING OF PAIN 11/21 SAYING NORCO ONLY WORKS FOR A SHORT TIME, DR GLASS MADE AWARE, WITH NEW ORDER, MEDICATED WITH NORCO 2 TABS PRN, BLOOD SUGAR CHECKED WITH 115 RESULT, DUE MEDS ADMINISTERED WITH EDUCATION PROVIDED, SNACK PROVIDED, ALL NEEDS ATTENDED.
--- NOTE | 2017-08-20 22:30 | NUR ---
PT COMPLAINING OF PAIN, WANTS TORADOL IVP , MADE AWARE OF NEXT DUE TIME AT 2300, VERBALIZED UNDERSTANDING, PT AMBULATED ON THE HALLWAY WITH STEADY GAIT, MONITORED CLOSELY.
[2017-08-21] VITALS: BP 134/87
[2017-08-21] MEDS: ALPRAZolam 0.5 MG TAB PO PRN ×2 (02:15→09:46)
--- NOTE | 2017-08-21 02:15 | NUR ---
PT COMPLAINING OF BACK PAIN, MEDICATED WITH NORCO 2 TABS PRN, MONITORED CLOSELY.
[2017-08-21] MEDS: KETOROLAC 30 MG/ML VIAL IVP PRN (04:59)
--- NOTE | 2017-08-21 05:00 | NUR ---
PT COMPLAINING OF PAIN, MEDICATED WITH TORADOL IVP, PT HAD 2 EPISODE OF SLIGHTLY LOOSE STOOL AND VERBALIZED THAT THE LAST ONE HAD BLOOD ON IT, TOLD PT THAT IF SHE HAS EPISODE OF BLOOD ON THE STOOL TO CALL RN SO WE CAN ASSESS IT, VERBALIZED UNDERSTANDING, COFFEE PROVIDED PER REQUEST.
[2017-08-21] MEDS: metroNIDAZOLE 500 MG/NS PREMIX 100 ML IV SCH ×2 (05:01→13:00)
[2017-08-21] MEDS: NACL 0.9% 1,000 ML IV SCH (05:01)
[2017-08-21 06:07] LABS: BASOPHILS % (AUTO) 0.4 % (0.0-2.0); EOSINOPHILS # (AUTO) 0.1 K/uL (0-0.4); EOSINOPHILS % (AUTO) 1.3 % (0.0-4.0); HEMATOCRIT 39.5 % (36-48); HEMOGLOBIN 12.9 g/dL (12.0-16.0); LYMPHOCYTES # (AUTO) 4.5 K/uL (2.5-16.5); LYMPHOCYTES % (AUTO) 47.4 % (20.5-51.1); MEAN CORPUSCULAR HEMOGLOBIN 28 pg (27-31); MEAN CORPUSCULAR HGB CONC 33 g/dL (33-37); MEAN CORPUSCULAR VOLUME 84.4 fL (80-94); MONOCYTES # (AUTO) 0.8 K/uL (0.8-1.0); MONOCYTES % (AUTO) 8.1 % (1.7-9.3); NEUTROPHILS % (AUTO) 42.8 % (42.2-75.2); PLATELET COUNT (AUTO) 211 K/uL (140-450); RED BLOOD CELL COUNT(AUTO) 4.67 MIL/uL (4.20-5.40); RED CELL DISTRIBUTION WIDTH 13.8 % (11.6-13.7); WHITE BLOOD COUNT (AUTO) 9.4 K/uL (4.8-10.8)
[2017-08-21] MEDS: PANTOPRAZOLE 40 MG TABEC PO SCH (06:08)
--- NOTE | 2017-08-21 06:22 | NUR ---
NEW IV LINE STARTED ON RT FA, RESUMED IVF, BLOOD SUGAR CHECKED WITH 102 RESULT, MONITORED CLOSELY.
[2017-08-21 06:24] LABS: ANION GAP 12.4 (8-16); CARBON DIOXIDE 25.4 mmol/L (21-32); CREATININE 0.7 mg/dL (0.6-1.3); POTASSIUM 3.8 mmol/L (3.5-5.1)
[2017-08-21 06:29] LABS: MAGNESIUM 1.7 mg/dL (1.8-2.4); PHOSPHORUS 3.1 mg/dL (2.5-4.9)
[2017-08-21] MEDS: BLOOD GLUCOSE MONITORING 1 DEV DEV FS SCH ×2 (06:36→11:58)
--- NOTE | 2017-08-21 06:50 | NUR ---
PT CRYING DUE TO BACK PAIN, ONLY TYLENOL AND MOTRIN DUE PRN AT THIS TIME, DR ARORA MADE AWARE, WARM BLANKET APPLIED TO BACK FOR COMFORT, WILL FOLLOW UP.
--- NOTE | 2017-08-21 07:10 | NUR ---
PT AWAKE, CRYING DUE TO BACK PAIN, WITH NEW ORDER FROM DR ARORA, REPORT GIVEN TO [place] FOR CONTINUITY OF CARE.
--- NOTE | 2017-08-21 07:10 | NUR ---
ASSUMED CONTINUITY OF CARE. NO SIGNS AND SYMPTOMS OF ACUTE DISTRESS NOTICED. INITIAL ASSESSMENT DONE. PT. NON-COMPLIANT AND THREATENING TO GO AMA. KEEP COMFORTABLE ON BED. EXPLAINED DIAGNOSIS, PLAN OF CARE, PAIN MANAGEMENT TEACHING, USE OF CALL LIGHT/BED/TV/BATHROOM. VERBALIZED UNDERSTANDING. CALL LIGHT WITHIN REACH.
--- NOTE | 2017-08-21 07:20 | NUR ---
Patient's Plan of Care was discussed and reviewed with WATER LEAK REPAIRER: ANDRÉS ARREDONDO
[2017-08-21 08:00] VITALS: BP 141/69
[2017-08-21] MEDS: CYCLOBENZAPRINE 10 MG TAB PO SCH ×2 (08:31→13:00)
[2017-08-21] MEDS: cloNIDine 0.1 MG TAB PO SCH ×2 (08:32→13:00)
[2017-08-21] MEDS: GABAPENTIN 300 MG CAP PO SCH ×2 (08:32→13:00)
[2017-08-21] MEDS: hydrOXYzine PAMOATE 25 MG CAP PO SCH ×2 (08:32→13:00)
[2017-08-21] MEDS: CHOLECALCIFEROL 1,000 IU TAB PO SCH (08:32)
[2017-08-21] MEDS: SKINTEGRITY HYDROGEL TP SCH (08:33)
[2017-08-21] MEDS: DOCUSATE SODIUM 100 MG GELCAP PO SCH (08:33)
--- NOTE | 2017-08-21 08:33 | NUR ---
DR. ALMANZAR, RESIDENTS AND CHARGE NURSE DID AM PT. ROUNDS. PT. ASKED FOR MORE PAIN MEDICINE ON TOP OF MD ORDERED ALREADY. PT. NON-COMPLIANT AT TIMES.
[2017-08-21] MEDS: metFORMIN 500 MG TAB PO SCH ×2 (08:34→08:43)
[2017-08-21] MEDS ORDERED: oxyCODONE/APAP 5/325 MG 1 TAB TAB PO PRN (08:45)
[2017-08-21] MEDS ORDERED: DEXAMETHASONE 10 MG/ML VIAL IVP SCH (09:06)
[2017-08-21] MEDS ORDERED: MAG SULF 2000 MG/WATER PREMIX 100 ML IV SCH (09:30)
[2017-08-21] MEDS ORDERED: diphenhydrAMINE 50 MG/ML VIAL IVP SCH (10:06)
--- NOTE | 2017-08-21 11:40 | NUR ---
PT. WENT TO SHOWER ROOM. IN STABLE CONDITION.
[2017-08-21 12:00] VITALS: BP 149/94
[2017-08-21] MEDS ORDERED: HYDRAGUARD CREAM TP SCH (13:00)
[2017-08-21] MEDS ORDERED: oxyCODONE 5 MG TAB PO PRN (13:00)
--- NOTE | 2017-08-21 13:20 | NUR ---
PT. NON-COMPLIANT AND VERBALLY ABUSIVE. PULLED IV ACCESS ON RIGHT FOREARM. INSISTED TO GO AMA BUT REFUSED TO SIGN AMA FORM. INFORMED CHARGE NURSE MIGUEL MORRELL AND DR. POSEY.
--- NOTE | 2017-08-21 14:44 | NUR ---
08/21/17 RD INITIAL ASSESSMENT COMPLETED PLEASE REFER TO NUTRITION ASSESSMENT UNDER CARE ACTIVITY FOR ESTIMATED NUTRITIONAL NEEDS. 1. CONTINUE CCHO 60 GM DIET TOLERATED 2. PROVIDED PT WITH DIABETES EDUCATION 3. RD TO FOLLOW-UP 3-5 DAYS, MEDIUM RISK DIMITRI CHONG RD
--- NOTE | 2017-08-25 16:38 | NUR ---
APPLIED RESEARCH DIRECTOR NOTE: I FAXED DISCHARGE SUMMARY TO [facility]
== END 2017-08-21 13:20 | disposition left against medical advice (07) | DRG 249 ==
LOC: MED 10:06 → MTU 12:38
PROVIDERS: ADMIT Family Medicine Sports Medicine; ATTEND Family Medicine Sports Medicine
DX: K52.9 Noninfective gastroenteritis and colitis, unspecified (principal); D68.59 Other primary thrombophilia; E11.51 Type 2 diabetes mellitus with diabetic peripheral angiopathy without gangrene; E11.65 Type 2 diabetes mellitus with hyperglycemia; E86.0 Dehydration; F19.239 Other psychoactive substance dependence with withdrawal, unspecified; K92.9 Disease of digestive system, unspecified; I73.9 Peripheral vascular disease, unspecified; E78.5 Hyperlipidemia, unspecified; K21.9 Gastro-esophageal reflux disease without esophagitis; E03.9 Hypothyroidism, unspecified; F41.9 Anxiety disorder, unspecified; E66.9 Obesity, unspecified; Z68.30 Body mass index [BMI] 30.0-30.9, adult; M54.30 Sciatica, unspecified side; Z88.8 Allergy status to other drugs, medicaments and biological substances; F17.210 Nicotine dependence, cigarettes, uncomplicated; Z80.8 Family history of malignant neoplasm of other organs or systems; Z53.21 Procedure and treatment not carried out due to patient leaving prior to being seen by health care provider; Z88.6 Allergy status to analgesic agent; Z88.2 Allergy status to sulfonamides; E87.6 Hypokalemia; Z87.442 Personal history of urinary calculi; Z79.84 Long term (current) use of oral hypoglycemic drugs
CPT/HCPCS: 36415; 71045; 80048; 80053; 80305; 81001; 81025; 82150; 82948; 83036; 83605; 83690; 83735; 84100; 84439; 84443; 84484; 84703; 85025; 85610; 87040; 87081; 93005; 93970; 96361; 96365; 96375; 96376; 99285; A6248; J0696; J1100; J1200; J1815; J1885; J1956; J2270; J2405; J3475; J3490; J7030; J7060; Q0092; Q0177

== ENCOUNTER 2017-09-07 18:37 | Emergency (ER) | payer OTHER ==
[~2017-09-07] VITALS: Ht 165.1 cm; Wt 79.4 kg
[2017-09-07 18:39] VITALS: BP 156/81
[2017-09-07 18:42] VITALS: BP 156/81
--- NOTE | 2017-09-07 18:42 | NUR ---
PT AMBULATES TO BED 4, REPORT RECIEVED FROM RN LUIS A
--- NOTE | 2017-09-07 18:42 | NUR ---
REPORT GIVEN TO TANIYA PARKS.
--- NOTE | 2017-09-07 18:45 | NUR ---
PATIENT PRESENTS TO ED WITH C/O LEFT EAR WOUND/PAIN X5 DAYS HX: DENIES . DENIES N/V/D; SKIN IS PINK/WARM/DRY; AAOX4 WITH EVEN AND STEADY GAIT; LUNGS CLEAR BL; HR EVEN AND REGULAR; PT DENIES ANY FEVER, CP, SOB, OR COUGH AT THIS TIME; PATIENT STATES PAIN OF 8/10 AT THIS TIME; VSS; PATIENT POSITIONED FOR COMFORT; HOB ELEVATED; BEDRAILS UP X2; BED DOWN. ER MD MADE AWARE OF PT STATUS.
--- NOTE | 2017-09-07 19:13 | NUR ---
REPORT RECIEVED FROM TANIYA PARKS FOR CONTINUITY OF CARE
--- NOTE | 2017-09-07 19:13 | NUR ---
REPORT GIVEN TO CHARLY GRAHAM FOR CONTINUATION OF CARE
--- NOTE | 2017-09-07 19:44 | NUR ---
PATIENT LEFT WITHOUT BEING SEEN BY DR. PRABHAKAR . NO FURTHER CARE PROVIDED FOR PATIENT.
--- NOTE | 2017-09-07 19:44 | NUR ---
Michelle krishna in EDM - 09/07/17 at 1949 by [facility] PATIENT ELOPED FROM FACILITY. DISCHARGE INSTRUCTIONS NOT GIVEN TO PATIENT. DR. PRABHAKAR NOTIFIED.
== END 2017-09-07 19:44 | disposition left against medical advice (07) ==
LOC: MED 18:37
DX: H92.02 Otalgia, left ear (principal); Z53.21 Procedure and treatment not carried out due to patient leaving prior to being seen by health care provider

== ENCOUNTER 2017-10-30 11:12 | Emergency (ER) | payer OTHER ==
[~2017-10-30] VITALS: Ht 165.1 cm; Wt 76.2 kg
[2017-10-30 11:15] VITALS: BP 145/115
[2017-10-30] MEDS ORDERED: MORPHINE SULFATE 4 MG/ML SYR IM ONE (12:25)
[2017-10-30 13:10] VITALS: BP 143/113
== END 2017-10-30 13:10 | disposition home or self-care (01) ==
LOC: MED 11:12
DX: M54.5 Low back pain (principal); R20.0 Anesthesia of skin; K21.9 Gastro-esophageal reflux disease without esophagitis; Z79.899 Other long term (current) drug therapy; Z79.84 Long term (current) use of oral hypoglycemic drugs; Z88.8 Allergy status to other drugs, medicaments and biological substances
CPT/HCPCS: 81002; 96372; 99283; J2270

== ENCOUNTER 2017-12-17 08:05 | Emergency (ER) | payer OTHER ==
[~2017-12-17] VITALS: Ht 165.1 cm; Wt 81.6 kg
[2017-12-17 08:12] VITALS: BP 128/98
[2017-12-17] MEDS ORDERED: LIDOCAINE 1% 500 MG/50 ML VIAL INJ SCH (08:50)
[2017-12-17 10:20] VITALS: BP 100/61
== END 2017-12-17 10:20 | disposition home or self-care (01) ==
LOC: MED 08:05
DX: S39.012A Strain of muscle, fascia and tendon of lower back, initial encounter (principal); M54.41 Lumbago with sciatica, right side; K21.9 Gastro-esophageal reflux disease without esophagitis; I10 Essential (primary) hypertension; F17.210 Nicotine dependence, cigarettes, uncomplicated; Z88.1 Allergy status to other antibiotic agents; Z79.899 Other long term (current) drug therapy; X58.XXXA Exposure to other specified factors, initial encounter; Y93.89 Activity, other specified; Y92.89 Other specified places as the place of occurrence of the external cause; Y99.8 Other external cause status
CPT/HCPCS: 20552; 81002; 99284; J2001

== ENCOUNTER 2017-12-28 13:26 | Emergency (ER) | payer OTHER ==
[~2017-12-28] VITALS: Ht 165.1 cm; Wt 68.0 kg
[2017-12-28 13:31] VITALS: BP 103/63
[2017-12-28 14:15] VITALS: BP 105/64
== END 2017-12-28 14:15 | disposition home or self-care (01) ==
LOC: MED 13:26
DX: S00.01XA Abrasion of scalp, initial encounter (principal); S00.411A Abrasion of right ear, initial encounter; K21.9 Gastro-esophageal reflux disease without esophagitis; I10 Essential (primary) hypertension; Z88.1 Allergy status to other antibiotic agents; Z79.899 Other long term (current) drug therapy; X58.XXXA Exposure to other specified factors, initial encounter; Y93.89 Activity, other specified; Y92.89 Other specified places as the place of occurrence of the external cause; Y99.8 Other external cause status
CPT/HCPCS: 99283

== ENCOUNTER 2018-04-04 11:59 | Emergency (ER) | payer OTHER ==
[~2018-04-04] VITALS: Ht 165.1 cm; Wt 70.3 kg
--- NOTE | 2018-04-04 12:02 | NUR ---
PT AMBULATES TO BED 1
[2018-04-04 12:14] VITALS: BP 130/75
--- NOTE | 2018-04-04 12:16 | NUR ---
PATIENT PRESENTS TO ED WITH LOWER BACK PAIN, PRURITUS ON SCALP EARS AND HAND.REDNESS NOTED ON HANDS;DENIES DYSURIA OR FREQUENCY IN URINATION;DENIES ANY INJURY; PATIENT STATES PAIN OF 8/10 AT THIS TIME; VSS; PATIENT POSITIONED FOR COMFORT; HOB ELEVATED; BEDRAILS UP X2; BED DOWN. ER MD MADE AWARE OF PT STATUS.
[2018-04-04] MEDS ORDERED: DEXAMETHASONE 10 MG/ML VIAL IM ONE (13:30)
[2018-04-04] MEDS ORDERED: hydrOXYzine HCL 25 MG TAB PO ONE (13:30)
[2018-04-04] MEDS ORDERED: MORPHINE SULFATE 2 MG/ML SYR IM ONE (13:30)
[2018-04-04] MEDS ORDERED: diphenhydrAMINE 50 MG/ML VIAL IM ONE (13:30)
[2018-04-04] MEDS ORDERED: MORPHINE SULFATE 4 MG/ML SYR ONE (14:12)
--- NOTE | 2018-04-04 14:37 | NUR ---
Patient discharged with v/s stable. Written and verbal after care instructions given and explained. Patient alert, oriented and verbalized understanding of instructions. Ambulatory with steady gait. All questions addressed prior to discharge. ID band removed. Patient advised to follow up with PMD. Rx of CLINDAMYCIN AND ATATRAX given. Patient educated on indication of medication including possible reaction and side effects. Opportunity to ask questions provided and answered.
[2018-04-04 14:38] VITALS: BP 130/75
== END 2018-04-04 14:37 | disposition home or self-care (01) ==
LOC: MED 11:59
DX: M54.41 Lumbago with sciatica, right side (principal); K21.9 Gastro-esophageal reflux disease without esophagitis; I10 Essential (primary) hypertension; Z88.6 Allergy status to analgesic agent; Z88.8 Allergy status to other drugs, medicaments and biological substances; Z79.899 Other long term (current) drug therapy
CPT/HCPCS: 96372; 99283; J1100; J1200; J2270

== ENCOUNTER 2018-04-06 13:08 | Emergency (ER) | payer OTHER ==
[~2018-04-06] VITALS: Ht 165.1 cm; Wt 74.8 kg
[2018-04-06 13:42] VITALS: BP 131/70
[2018-04-06] MEDS: MORPHINE SULFATE 4 MG/ML SYR IM ONE (13:58)
[2018-04-06 14:34] VITALS: BP 131/70
== END 2018-04-06 14:35 | disposition home or self-care (01) ==
LOC: MED 13:08
DX: M54.41 Lumbago with sciatica, right side (principal); M25.551 Pain in right hip; K21.9 Gastro-esophageal reflux disease without esophagitis; I10 Essential (primary) hypertension; Z88.8 Allergy status to other drugs, medicaments and biological substances; Z79.899 Other long term (current) drug therapy
CPT/HCPCS: 96372; 99283; J2270

== ENCOUNTER 2018-05-04 13:56 | Emergency (ER) | payer OTHER ==
[~2018-05-04] VITALS: Ht 165.1 cm; Wt 68.0 kg
[2018-05-04 14:13] VITALS: BP 133/78
--- NOTE | 2018-05-04 14:21 | NUR ---
URINE CUP HANDED TO PT FOR SAMPLE
--- NOTE | 2018-05-04 14:45 | NUR ---
PATIENT PRESENTS TO ED WITH C/O LOWER BACK PAIN EXACERBATED S/P MOVING BOXES 4 DAYS AGO ALSO RECURRING SCALP DRYNESS WITH PRURITUS .DENIES N/V/D; SKIN IS PINK/WARM/DRY; AAOX4 WITH EVEN AND STEADY GAIT; LUNGS CLEAR BL; HR EVEN AND REGULAR; PT DENIES ANY FEVER, CP, SOB, OR COUGH AT THIS TIME; PATIENT STATES PAIN OF 8/10 AT THIS TIME; VSS; PATIENT POSITIONED FOR COMFORT; HOB ELEVATED; BEDRAILS UP X2; BED DOWN. ER MD MADE AWARE OF PT STATUS.
[2018-05-04] MEDS ORDERED: ONDANSETRON 4 MG ODT PO ONE (16:00)
[2018-05-04] MEDS ORDERED: MORPHINE SULFATE 4 MG/ML SYR IM ONE (16:00)
--- NOTE | 2018-05-04 17:02 | NUR ---
Patient discharged with v/s stable. Written and verbal after care instructions given and explained. Patient alert, oriented and verbalized understanding of instructions. Ambulatory with steady gait. All questions addressed prior to discharge. ID band removed. Patient advised to follow up with PMD. Rx of ZOFRAN/ Mupirocin given. Patient educated on indication of medication including possible reaction and side effects. Opportunity to ask questions provided and answered.
[2018-05-04 17:03] VITALS: BP 134/88
== END 2018-05-04 17:02 | disposition home or self-care (01) ==
LOC: MED 13:56
DX: M54.5 Low back pain (principal); R21 Rash and other nonspecific skin eruption; K21.9 Gastro-esophageal reflux disease without esophagitis; I10 Essential (primary) hypertension; Z79.899 Other long term (current) drug therapy; Z88.8 Allergy status to other drugs, medicaments and biological substances
CPT/HCPCS: 81002; 81025; 96372; 99283; J2270; Q0162

== ENCOUNTER 2018-06-06 20:01 | Emergency (ER) | payer OTHER ==
[~2018-06-06] VITALS: Ht 165.1 cm; Wt 79.4 kg
[2018-06-06 20:02] VITALS: BP 131/81
--- NOTE | 2018-06-06 20:06 | NUR ---
PT TAKEN TO BED 2
--- NOTE | 2018-06-06 20:15 | NUR ---
PT BIB SELF C/O RASH ON HEAD, BACK, GLUTEUS, BACK OF RIGHT ARM. PT STATES THIS HAS BEENN GOING ON FOR A YEAR BUT IT VERY PAINFUL AND ITS "MADENING". PT STATES DISTRUPTED SLEEP PATTERNS FROM DISCOMFORT. PAIN 7/10 AT RASH SIGHTS. PT STATES TO TAKEN BENADRYL AND IBUPROFEN W/O RELIEF. RASH SIGHTS ARE SMALL IN SIZE, CIRCULAR SHAPE W/ PUSTUELS, AND REDNESS; NO SWELLING OR DISCHARGE. DENIES N/V/D, SOB, OR CP. SKIN IS WARM DRY AND INTACT. AAOX4. LUNG SOUNDS CLEAR THROUGH OUT. BOWEL SOUNDS ACTIVE X4 QUAD. PT IN BED; BED IN LOWER LOCKED POSITION, BEDRAILS UP X1 ER MADE AWARE OF PT STATUS. PMH: DENIES RX: DENIES
--- NOTE | 2018-06-06 20:20 | NUR ---
Dr. Biswas evaluating patient at bedside.
[2018-06-06] MEDS ORDERED: methylPREDNISolone SS 125 MG in WATER STERILE 2 ML IM ONE (20:30)
--- NOTE | 2018-06-06 20:49 | NUR ---
Patient discharged with v/s stable. Written and verbal after care instructions given and explained. Patient alert, oriented and verbalized understanding of instructions. Ambulatory with steady gait. All questions addressed prior to discharge. ID band removed. Patient advised to follow up with PMD. Rx of Diphenhydramine Hydrochloride, Prednisone, and Bactrim given. Patient educated on indication of medication including possible reaction and side effects. Opportunity to ask questions provided and answered.
[2018-06-06 20:53] VITALS: BP 129/83
== END 2018-06-06 20:49 | disposition home or self-care (01) ==
LOC: MED 20:01
DX: R21 Rash and other nonspecific skin eruption (principal); Z88.8 Allergy status to other drugs, medicaments and biological substances; Z79.899 Other long term (current) drug therapy
CPT/HCPCS: 96372; 99283; J2930

== ENCOUNTER 2018-06-19 13:28 | Emergency (ER) | payer OTHER ==
[~2018-06-19] VITALS: Ht 165.1 cm; Wt 81.6 kg
[2018-06-19 13:32] VITALS: BP 135/73
--- NOTE | 2018-06-19 14:30 | NUR ---
PT BIB SELF STATES "I'M RIPPING OUT CHUNKS OF MY SCALP BY SCRATCHING IT" I'VE SEEN MY REAL ESTATE BRANCH MANAGER AND MY PRIMARY DOCTOR, SEEN HERE 10 DAYS AGO AND GIVEN A STEROID AND ANTIBIOTICS. STATES IT'S STARTING TO FLARE UP AGAIN. 5/10 ITCHING PAIN. HX OF DEPRESSION/ANXIETY.
--- NOTE | 2018-06-19 15:05 | NUR ---
Patient being evaluated by physician at bedside.
[2018-06-19] MEDS ORDERED: diphenhydrAMINE 50 MG/ML VIAL IM ONE (15:20)
[2018-06-19] MEDS ORDERED: DEXAMETHASONE 10 MG/ML VIAL IM ONE (15:20)
[2018-06-19 15:54] VITALS: BP 128/78
--- NOTE | 2018-06-19 15:54 | NUR ---
Patient discharged with v/s stable. Written and verbal after care instructions given and explained. Patient alert, oriented and verbalized understanding of instructions. Ambulatory with steady gait. All questions addressed prior to discharge. ID band removed. Patient advised to follow up with PMD. Rx of Nizoral, Atarax, Doxycycline, Bactroban given. Patient educated on indication of medication including possible reaction and side effects. Opportunity to ask questions provided and answered.
== END 2018-06-19 15:54 | disposition home or self-care (01) ==
LOC: MED 13:28
DX: L71.9 Rosacea, unspecified (principal); F41.9 Anxiety disorder, unspecified; Z79.899 Other long term (current) drug therapy; Z88.8 Allergy status to other drugs, medicaments and biological substances
CPT/HCPCS: 96372; 99283; J1100; J1200